=== PATIENT | female | born 1950 | race Hispanic/Latino ===

== ENCOUNTER 2018-07-15 17:55 | Observation (INO) | payer OTHER ==
[~2018-07-15] VITALS: Ht 152.4 cm; Wt 89.2 kg
[~2018-07-15 17:55] MED LIST: ASPI-555 PO; ATOR40TA69 PO; CARV3.1262 PO; CLOP75TA14 PO; FURO40TA7 PO; LISI-617 PO; METO2.5T2 PO; NITR0.4T50 SL; PANT40TA25 PO; SITA100T12 PO; SPIR25TA PO
[2018-07-15 18:35] LABS: BASOPHILS % (AUTO) 1.2 % (0.0-5.0); EOSINOPHILS % (AUTO) 0.7 % (0.0-8.0); HEMATOCRIT 33.9 % (36-48); LYMPHOCYTES % (AUTO) 22.5 % (21.0-51.0); MEAN CORPUSCULAR HEMOGLOBIN 27.9 pg (27.0-33.0); MEAN CORPUSCULAR HGB CONC 34.1 g/dL (32.0-36.0); MEAN CORPUSCULAR VOLUME 81.8 fL (79-99); MONOCYTES % (AUTO) 6.4 % (3.0-13.0); NEUTROPHILS % (AUTO) 69.2 % (40.0-77.0); NUCLEATED RED BLOOD CELLS 0.2 % (0.0-0.19); PLATELET COUNT (AUTO) 248 K/uL (130-400); RED BLOOD CELL COUNT(AUTO) 4.15 MIL/uL (4.00-5.50); RED CELL DISTRIBUTION WIDTH 21.1 % (11.0-15.5); WHITE BLOOD COUNT (AUTO) 6.9 K/uL (4.8-10.8)
[2018-07-15 18:48] LABS: INR 1.28 (0.85-1.15); PARTIAL THROMBOPLASTIN TIME 28.8 SEC (26.3-35.5); PROTHROMBIN TIME 13.4 SEC (9.6-11.6)
[2018-07-15 18:51] LABS: CREATININE 1.3 mg/dL (0.5-1.5); POTASSIUM 3.6 mmol/L (3.5-5.1)
[2018-07-15 18:52] LABS: APPEARANCE,URINE Clear (CLEAR); BILIRUBIN,URINE Negative (NEGATIVE); COLOR,URINE Yellow (YELLOW); GLUCOSE, URINE (UA) Negative (NEGATIVE); KETONES,URINE Negative (NEGATIVE); LEUKOCYTE ESTERASE ,URINE Negative (NEGATIVE); NITRATE,URINE Negative (NEGATIVE); OCCULT BLOOD,URINE Negative (NEGATIVE); PROTEIN,URINE POS 2+ mg/dL (NEGATIVE)
[2018-07-15] MEDS ORDERED: FAMOTIDINE/PF 20 MG/2 ML VIAL IV ONE (18:56)
[2018-07-15 18:59] LABS: ALBUMIN 3.7 g/dL (3.5-5.0); BILIRUBIN,TOTAL 1.6 mg/dL (0.2-1.0); TOTAL PROTEIN, SERUM 7.4 g/dL (6.0-8.3)
[2018-07-15 19:00] LABS: B-TYPE NATRIURETIC PEPTIDE 4120 pg/mL (0-100)
[2018-07-15] MEDS ORDERED: NITROGLYCERIN 1GM/1 INCH PACKET TD ONE (19:10)
[2018-07-15] MEDS ORDERED: FUROSEMIDE 10 MG/ML 2ML VIAL ONE (19:10)
[2018-07-15 19:24] LABS: BACTERIA,URINE Rare /HPF (None Seen); RBC,URINE 0-1 /HPF (0-1)
[2018-07-15 19:25] LABS: SQUAMOUS EPITHELIAL CELL,UR Rare /HPF (0-2)
[2018-07-15 19:32] LABS: PLATELET MORPHOLOGY PLT CLUMPS PRESENT
[2018-07-15] MEDS ORDERED: POTASSIUM CHLORIDE 10% ELIXIR 20 MEQ/15 ML UDCUP PO PRN (22:00)
[2018-07-15] MEDS ORDERED: SODIUM CHLORIDE 0.9% 10 ML VIAL IVP PRN (22:00)
[2018-07-15] MEDS ORDERED: DEXTROSE 50%-WATER 50 ML DISP.SYRIN IV PRN (22:00)
[2018-07-15] MEDS ORDERED: POTASSIUM CHLORIDE 20 MEQ ERTAB PO PRN (22:00)
[2018-07-15] MEDS ORDERED: POTASSIUM CHLORIDE 20MEQ/100ML 100 ML IV PRN (22:00)
[2018-07-15] MEDS ORDERED: GLUCAGON 1MG KIT 1 MG ML IM PRN (22:00)
[2018-07-15] MEDS ORDERED: LIDOCAINE HCL-MPF 1% 2ML VIAL IJ PRN (22:00)
[2018-07-15 22:38] VITALS: BP 144/77
[2018-07-15] MEDS ORDERED: NITROGLYCERIN 0.4 MG SL TAB SL PRN (23:45)
[2018-07-16] MEDS ORDERED: ONDANSETRON HCL 4 MG/2 ML VIAL IVP PRN (00:15)
[2018-07-16] MEDS: HYDROMORPHONE 1 MG/1 ML AMP IVP PRN ×3 (00:19→22:20)
[2018-07-16 03:58] VITALS: BP 130/78
[2018-07-16 05:22] LABS: HEMATOCRIT 35.4 % (36-48); MEAN CORPUSCULAR HEMOGLOBIN 26.8 pg (27.0-33.0); MEAN CORPUSCULAR HGB CONC 32.6 g/dL (32.0-36.0); MEAN CORPUSCULAR VOLUME 82.1 fL (79-99); NUCLEATED RED BLOOD CELLS 0.1 % (0.0-0.19); PLATELET COUNT (AUTO) 283 K/uL (130-400); RED BLOOD CELL COUNT(AUTO) 4.31 MIL/uL (4.00-5.50); RED CELL DISTRIBUTION WIDTH 21.3 % (11.0-15.5); WHITE BLOOD COUNT (AUTO) 7.6 K/uL (4.8-10.8)
[2018-07-16 05:42] LABS: ALBUMIN 3.7 g/dL (3.5-5.0); BILIRUBIN,TOTAL 2.4 mg/dL (0.2-1.0); CREATININE 1.7 mg/dL (0.5-1.5); POTASSIUM 3.6 mmol/L (3.5-5.1); TOTAL PROTEIN, SERUM 7.4 g/dL (6.0-8.3)
[2018-07-16] MEDS ORDERED: FUROSEMIDE 10 MG/ML 4ML VIAL IVP SCH (06:00)
[2018-07-16] MEDS: INSULIN R PO SS1 SQ SCH ×4 (06:52→20:46)
[2018-07-16 08:00] VITALS: BP 136/62
[2018-07-16] MEDS: ASPIRIN 81MG TAB.CHEW PO SCH (09:31)
[2018-07-16] MEDS: SPIRONOLACTONE 25 MG TAB PO SCH (09:31)
[2018-07-16] MEDS: LINAGLIPTIN 5 MG TABLET PO SCH (09:31)
[2018-07-16] MEDS: PANTOPRAZOLE SODIUM 40 MG TABLET.DR PO SCH (09:31)
[2018-07-16] MEDS: CLOPIDOGREL BISULFATE 75 MG TAB PO SCH (09:31)
[2018-07-16 12:00] VITALS: BP 141/85
--- NOTE | 2018-07-16 15:04 | NUR ---
DCP CM met with pt discussed dc plans. Pt is independent prior to admission, lives at home w/spouse. Pt has a walker, provider 5hrs, uses 's wheelchair when going to MD appointments. Denies any other equipments/services. Pt feels safe to go back home, spouse able to assist with transportation and needs as necessary. DC plan to home. CM to cont to follow up. Addendum: 07/16/18 at 1508 by DANIEL LEIGH LVN CM Amended: Links added.
[2018-07-16 16:00] VITALS: BP 116/60
[2018-07-16] MEDS: FUROSEMIDE 10 MG/ML 2ML VIAL IV SCH (18:25)
[2018-07-16 19:46] VITALS: BP 134/83
[2018-07-16] MEDS: CARVEDILOL 3.125 MG TABLET PO SCH (20:45)
[2018-07-16] MEDS ORDERED: ATORVASTATIN CALCIUM 40 MG TABLET PO SCH (21:00)
[2018-07-16 23:45] VITALS: BP 136/78
[2018-07-17 04:14] VITALS: BP 124/71
[2018-07-17] MEDS: INSULIN R PO SS1 SQ SCH ×2 (05:11→11:30)
[2018-07-17 05:36] LABS: CREATININE 1.5 mg/dL (0.5-1.5); POTASSIUM 3.3 mmol/L (3.5-5.1)
[2018-07-17] MEDS: FUROSEMIDE 10 MG/ML 2ML VIAL IV SCH (06:09)
[2018-07-17 07:30] VITALS: BP 127/73
[2018-07-17] MEDS ORDERED: METOLAZONE 2.5 MG TABLET PO SCH (09:00)
[2018-07-17] MEDS: CARVEDILOL 3.125 MG TABLET PO SCH (09:43)
[2018-07-17] MEDS: CLOPIDOGREL BISULFATE 75 MG TAB PO SCH (09:43)
[2018-07-17] MEDS: ASPIRIN 81MG TAB.CHEW PO SCH (09:43)
[2018-07-17] MEDS: PANTOPRAZOLE SODIUM 40 MG TABLET.DR PO SCH (09:43)
[2018-07-17] MEDS: SPIRONOLACTONE 25 MG TAB PO SCH (09:43)
[2018-07-17] MEDS: LINAGLIPTIN 5 MG TABLET PO SCH (09:43)
[2018-07-17] MEDS ORDERED: FURO40TA5 PO (10:01)
[2018-07-17 11:00] VITALS: BP 127/69
--- NOTE | 2018-07-17 14:40 | NUR ---
DISCHARGE PATIENT/SPOUSE AND PROVIDER GIVEN DISCHARGE INSTRUCTIONS VIA TEACH BACK. 20G PIV TO LEFT HAND DISCONTINUED, TIP INTACT. PATIENT TO FOLLOW UP WITH PCP AND CLAIRE PERALTA AT [facility]. WRITTEN RX GIVEN AND PROVIDER AWARE OF SETTING UP MEDICATION BOX PROPERLY. PATIENT/SPOUSE UNABLE TO READ OR WRITE. PATIENT STABLE AT THIS TIME.
== END 2018-07-17 14:35 | disposition home or self-care (01) ==
LOC: EDH 17:55 → EDHIP 21:05 → 3BH 22:56
PROVIDERS: ADMIT Internal Medicine; ATTEND Internal Medicine
DX: I11.0 Hypertensive heart disease with heart failure (principal); I50.43 Acute on chronic combined systolic (congestive) and diastolic (congestive) heart failure; E11.9 Type 2 diabetes mellitus without complications; E66.9 Obesity, unspecified; E78.5 Hyperlipidemia, unspecified; I25.10 Atherosclerotic heart disease of native coronary artery without angina pectoris; I25.2 Old myocardial infarction; I25.5 Ischemic cardiomyopathy; I45.19 Other right bundle-branch block; I48.0 Paroxysmal atrial fibrillation; R57.0 Cardiogenic shock; S06.5X9A Traumatic subdural hemorrhage with loss of consciousness of unspecified duration, initial encounter; Z79.02 Long term (current) use of antithrombotics/antiplatelets; Z79.84 Long term (current) use of oral hypoglycemic drugs; Z79.899 Other long term (current) drug therapy; Z90.710 Acquired absence of both cervix and uterus; Z91.14 Patient's other noncompliance with medication regimen; Z91.19 Patient's noncompliance with other medical treatment and regimen; Z95.5 Presence of coronary angioplasty implant and graft; Z79.82 Long term (current) use of aspirin
CPT/HCPCS: 36415 ×3; 71045; 74176; 80048; 80053 ×2; 81001; 82150; 82550; 82948 ×6; 83690; 83880 ×2; 84484; 85025; 85027; 85610; 85730; 87804 ×2; 93005 ×2; 96372; 96374; 96375; 96376 ×2; 99284; G0378 ×41; J1170 ×3; J1815 ×2; J1940 ×4; J3490

== ENCOUNTER → 2018-10-07 | Outpatient (CLI) | payer OTHER ==
[~2018-10-07] MED LIST changes: +FURO40TA5 PO; -FURO40TA7 PO; -PANT40TA25 PO
== END | disposition home or self-care (01) ==
LOC: LAB 10-03 14:36
PROVIDERS: ATTEND Internal Medicine Cardiovascular Disease
DX: R19.7 Diarrhea, unspecified (principal)
CPT/HCPCS: 83630; 87177; 87324

== ENCOUNTER → 2020-06-23 | Outpatient (CLI) | payer OTHER ==
[~2020-06-23] MED LIST changes: -ASPI-555 PO; +ASPI-556 PO; -LISI-617 PO; +LISI-809 PO
== END | disposition home or self-care (01) ==
LOC: RAH 08:25
PROVIDERS: ATTEND Internal Medicine Gastroenterology
DX: K74.3 Primary biliary cirrhosis (principal); K86.2 Cyst of pancreas; J90 Pleural effusion, not elsewhere classified; I51.7 Cardiomegaly; Z90.49 Acquired absence of other specified parts of digestive tract
CPT/HCPCS: 74181

== ENCOUNTER → 2020-10-14 | Outpatient (CLI) | payer OTHER | END | disposition home or self-care (01) | LOC: SHCH 08:11 | PROVIDERS: ATTEND Internal Medicine Cardiovascular Disease | DX: I87.2 Venous insufficiency (chronic) (peripheral) (principal) | CPT/HCPCS: 93970 ==

== ENCOUNTER → 2021-05-02 | Outpatient (CLI) | payer OTHER ==
[~2021-05-02] MED LIST changes: +GADOTERATE MEGLUMINE 10 MMOL/20 ML VIAL IV ONE; -LISI-809 PO; +LISI5TAB21 PO
== END | disposition home or self-care (01) ==
LOC: RAH 09:02
PROVIDERS: ATTEND Internal Medicine Gastroenterology
DX: K86.2 Cyst of pancreas (principal); K74.3 Primary biliary cirrhosis; J90 Pleural effusion, not elsewhere classified; Z90.49 Acquired absence of other specified parts of digestive tract
CPT/HCPCS: 74183; A9575

== ENCOUNTER → 2021-08-10 | Outpatient (CLI) | payer OTHER ==
[~2021-08-10] MED LIST changes: -GADOTERATE MEGLUMINE 10 MMOL/20 ML VIAL IV ONE
[2021-08-10 12:52] LABS: CREATININE 2.8 mg/dL (0.5-1.5); POTASSIUM 4.7 mmol/L (3.5-5.1)
== END | disposition home or self-care (01) ==
LOC: LAB 10:17
PROVIDERS: ATTEND Internal Medicine Cardiovascular Disease
DX: I50.42 Chronic combined systolic (congestive) and diastolic (congestive) heart failure (principal)
CPT/HCPCS: 36415; 80048; 83880

== ENCOUNTER → 2021-08-17 | Outpatient (CLI) | payer OTHER ==
[2021-08-17 12:35] LABS: POTASSIUM 4.1 mmol/L (3.5-5.1)
== END | disposition home or self-care (01) ==
LOC: LAB 09:46
PROVIDERS: ATTEND Internal Medicine Cardiovascular Disease
DX: I50.42 Chronic combined systolic (congestive) and diastolic (congestive) heart failure (principal)
CPT/HCPCS: 36415; 80048

== ENCOUNTER 2021-12-24 00:17 | Emergency (ER) | payer OTHER ==
[~2021-12-24] VITALS: Ht 152.4 cm; Wt 73.5 kg
[2021-12-24 01:05] LABS: BASOPHILS % (AUTO) 0.5 % (0.0-5.0); EOSINOPHILS % (AUTO) 1.2 % (0.0-8.0); MEAN CORPUSCULAR HEMOGLOBIN 30.4 pg (27.0-33.0); MEAN CORPUSCULAR HGB CONC 33.1 g/dL (32.0-36.0); MEAN CORPUSCULAR VOLUME 91.9 fL (79-99); MONOCYTES % (AUTO) 8.7 % (3.0-13.0); NEUTROPHILS % (AUTO) 76.3 % (40.0-77.0); PLATELET COUNT (AUTO) 204 K/uL (130-400); RED BLOOD CELL COUNT(AUTO) 3.81 MIL/uL (4.00-5.50); RED CELL DISTRIBUTION WIDTH 14.3 % (11.0-15.5); WHITE BLOOD COUNT (AUTO) 10.6 K/uL (4.8-10.8)
[2021-12-24 01:13] LABS: CREATININE 2.6 mg/dL (0.5-1.5); POTASSIUM 3.9 mmol/L (3.5-5.1)
[2021-12-24 01:17] LABS: ALBUMIN 2.9 g/dL (3.5-5.0); TOTAL PROTEIN, SERUM 6.8 g/dL (6.0-8.3)
[2021-12-24] MEDS: GUAIFENESIN-CODEINE 5 ML SYRUP PO ONE (01:45)
[2021-12-24] MEDS: FUROSEMIDE 40MG VIAL IV ONE (01:45)
[2021-12-24] MEDS: MORPHINE 2 MG SYG IVP ONE (03:15)
[2021-12-24] MEDS ORDERED: AZIT1PAC7 PO (05:57)
[2021-12-24] MEDS ORDERED: GUAI5SYR4 PO (05:57)
[2021-12-24 06:11] VITALS: BP 121/71
== END 2021-12-24 06:21 | disposition home or self-care (01) ==
LOC: EDH 00:17
DX: J40 Bronchitis, not specified as acute or chronic (principal); R05.9 Cough, unspecified; J81.1 Chronic pulmonary edema; I11.0 Hypertensive heart disease with heart failure; I50.9 Heart failure, unspecified; Z20.822 Contact with and (suspected) exposure to COVID-19; E11.9 Type 2 diabetes mellitus without complications; E78.00 Pure hypercholesterolemia, unspecified; Z95.818 Presence of other cardiac implants and grafts; Z79.899 Other long term (current) drug therapy; Z79.82 Long term (current) use of aspirin; Z79.84 Long term (current) use of oral hypoglycemic drugs
CPT/HCPCS: 99285; 96374; 71045; 87635; 96375; 83735; 84484; 80053; 83880; 85025; 87804 ×2; 36415; 93005; C9803; J1940

== ENCOUNTER → 2022-01-04 | Outpatient (CLI) | payer OTHER ==
[~2022-01-04] MED LIST changes: +AZIT1PAC7 PO; +GUAI5SYR4 PO
[2022-01-04 13:01] LABS: CREATININE 2.1 mg/dL (0.5-1.5); POTASSIUM 4.3 mmol/L (3.5-5.1)
== END | disposition home or self-care (01) ==
LOC: LAB 09:47
PROVIDERS: ATTEND Internal Medicine Cardiovascular Disease
DX: I50.22 Chronic systolic (congestive) heart failure (principal)
CPT/HCPCS: 36415; 80048; 83880

== ENCOUNTER 2022-01-13 17:01 | Inpatient (IN) | payer OTHER ==
[~2022-01-13] VITALS: Ht 152.4 cm; Wt 77.5 kg
[2022-01-13] MEDS ORDERED: TORS20TA4 PO (17:25)
[2022-01-13] MEDS ORDERED: GLIP2.5T2 PO (17:27)
[2022-01-13] MEDS ORDERED: CARV3.12 PO (17:28)
[2022-01-13] MEDS ORDERED: ATOR40TA69 PO (17:30)
[2022-01-13] MEDS ORDERED: ISOS30TA92 PO (17:30)
[2022-01-13] MEDS ORDERED: HYDR-4153 PO (17:31)
[2022-01-13 17:33] LABS: BASOPHILS % (AUTO) 0.5 % (0.0-5.0); HEMATOCRIT 35.5 % (36-48); LYMPHOCYTES % (AUTO) 18.1 % (21.0-51.0); MEAN CORPUSCULAR HEMOGLOBIN 30.3 pg (27.0-33.0); MEAN CORPUSCULAR HGB CONC 32.4 g/dL (32.0-36.0); MEAN CORPUSCULAR VOLUME 93.4 fL (79-99); NEUTROPHILS % (AUTO) 70.2 % (40.0-77.0); PLATELET COUNT (AUTO) 192 K/uL (130-400); RED CELL DISTRIBUTION WIDTH 15.1 % (11.0-15.5); WHITE BLOOD COUNT (AUTO) 6.4 K/uL (4.8-10.8)
[2022-01-13 17:38] LABS: APPEARANCE,URINE CLEAR (CLEAR); BILIRUBIN,URINE NEGATIVE (NEGATIVE); COLOR,URINE LIGHT-YELLOW (YELLOW); GLUCOSE, URINE (UA) NEGATIVE (NEGATIVE); KETONES,URINE NEGATIVE (NEGATIVE); LEUKOCYTE ESTERASE ,URINE NEGATIVE Leu/uL (NEGATIVE); NITRATE,URINE NEGATIVE (NEGATIVE); OCCULT BLOOD,URINE NEGATIVE (NEGATIVE); PROTEIN,URINE NEGATIVE (NEGATIVE); UROBILINOGEN,URINE 0.2 mg/dL (0.2-1.0)
[2022-01-13 17:54] LABS: ALBUMIN 2.9 g/dL (3.5-5.0); CREATININE 2.1 mg/dL (0.5-1.5); POTASSIUM 3.7 mmol/L (3.5-5.1); TOTAL PROTEIN, SERUM 6.4 g/dL (6.0-8.3)
[2022-01-13 18:02] LABS: B-TYPE NATRIURETIC PEPTIDE 1680 pg/mL (0-100)
[2022-01-13] MEDS ORDERED: FUROSEMIDE 40MG VIAL ONE (18:14)
[2022-01-13] MEDS ORDERED: 0.9% NACL 500ML IV.SOLN 500 ML IV SCH (18:30)
[2022-01-13 22:15] VITALS: BP 121/53
[2022-01-13] MEDS ORDERED: LABETALOL 20MG SYG IV PRN (22:30)
[2022-01-13] MEDS ORDERED: LACTULOSE 20 GM/30 ML UDCUP PO PRN (22:30)
[2022-01-13] MEDS ORDERED: HYDRALAZINE 20MG/ML VIAL IV PRN (22:30)
[2022-01-13] MEDS ORDERED: ONDANSETRON 4MG INJ IVP PRN (22:30)
[2022-01-13] MEDS ORDERED: CLONIDINE HCL 0.1 MG TABLET PO PRN (22:30)
[2022-01-13] MEDS ORDERED: ALBUTEROL 0.083% 2.5 MG/3 ML INH IH PRN (22:30)
[2022-01-13] MEDS ORDERED: ACETAMINOPHEN 650 MG SUPPOSITORY RC PRN (22:30)
[2022-01-13] MEDS ORDERED: PANTOPRAZOLE 40 MG/VIAL IVP ONE (23:00)
[2022-01-13] MEDS ORDERED: DEXTROSE 50%-WATER 50 ML DISP.SYRIN IV PRN (23:00)
[2022-01-13] MEDS ORDERED: GLUCAGON 1MG KIT 1 MG ML IM PRN (23:00)
[2022-01-14] MEDS: IPRATROPIUM 0.5 MG/2.5 ML INH IH SCH ×6 (02:14→22:49)
[2022-01-14 03:57] VITALS: BP 117/80
[2022-01-14] MEDS: ACETAMINOPHEN 325 MG TAB PO PRN ×2 (04:59→23:21)
[2022-01-14 05:00] LABS: BASOPHILS % (AUTO) 0.7 % (0.0-5.0); EOSINOPHILS % (AUTO) 2.4 % (0.0-8.0); HEMATOCRIT 32.1 % (36-48); MEAN CORPUSCULAR HEMOGLOBIN 30.3 pg (27.0-33.0); MEAN CORPUSCULAR HGB CONC 32.1 g/dL (32.0-36.0); MEAN CORPUSCULAR VOLUME 94.4 fL (79-99); MONOCYTES % (AUTO) 10.4 % (3.0-13.0); NEUTROPHILS % (AUTO) 66.9 % (40.0-77.0); PLATELET COUNT (AUTO) 177 K/uL (130-400); RED CELL DISTRIBUTION WIDTH 15.1 % (11.0-15.5); WHITE BLOOD COUNT (AUTO) 5.4 K/uL (4.8-10.8)
[2022-01-14 05:23] LABS: CREATININE 2.1 mg/dL (0.5-1.5); MAGNESIUM 2.3 mg/dL (1.80-2.40); PHOSPHORUS 5.2 mg/dL (2.5-4.9); POTASSIUM 3.5 mmol/L (3.5-5.1); THYROID STIMULATING HORMONE 5.86 uIU/mL (0.36-3.74)
[2022-01-14 07:08] VITALS: BP 118/54
[2022-01-14] MEDS ORDERED: FUROSEMIDE 40MG VIAL IV SCH (08:00)
[2022-01-14] MEDS: ENOXAPARIN SODIUM 30 MG/0.3 ML SQ SCH (08:12)
[2022-01-14] MEDS: ISOSORBIDE MONO 30MG SR TAB PO SCH (10:52)
[2022-01-14] MEDS: PANTOPRAZOLE 40 MG TAB DR PO SCH (10:52)
[2022-01-14] MEDS: CARVEDILOL 3.125 MG TABLET PO SCH ×2 (10:53→20:46)
[2022-01-14 11:08] VITALS: BP 114/60
[2022-01-14] MEDS ORDERED: MAGNESIUM CITRATE 296 ML SOLUTION PO SCH (13:30)
[2022-01-14] MEDS ORDERED: MAGNESIUM CITRATE 296 ML SOLUTION PO ONE (15:30)
[2022-01-14 16:00] VITALS: BP 118/72
[2022-01-14] MEDS: BUMETANIDE 2.5MG/10ML VIAL 40 ML IV SCH (16:33)
[2022-01-14] MEDS: MILRINONE-D5W 20 MG/100 ML 100 ML IV SCH (16:35)
[2022-01-14 19:21] VITALS: BP 119/62
[2022-01-14] MEDS: HYDRALAZINE HCL 10 MG TABLET PO SCH (20:45)
[2022-01-14] MEDS: ATORVASTATIN 40 MG TABLET PO SCH (20:46)
[2022-01-15 00:21] VITALS: BP 118/56
[2022-01-15 00:38] LABS: APPEARANCE,URINE CLEAR (CLEAR); BILIRUBIN,URINE NEGATIVE (NEGATIVE); COLOR,URINE LIGHT-YELLOW (YELLOW); GLUCOSE, URINE (UA) NEGATIVE (NEGATIVE); KETONES,URINE NEGATIVE (NEGATIVE); LEUKOCYTE ESTERASE ,URINE NEGATIVE Leu/uL (NEGATIVE); NITRATE,URINE NEGATIVE (NEGATIVE); OCCULT BLOOD,URINE NEGATIVE (NEGATIVE); PROTEIN,URINE NEGATIVE (NEGATIVE); UROBILINOGEN,URINE 0.2 mg/dL (0.2-1.0)
[2022-01-15] MEDS: MILRINONE-D5W 20 MG/100 ML 100 ML IV SCH ×2 (02:10→15:13)
[2022-01-15] MEDS: IPRATROPIUM 0.5 MG/2.5 ML INH IH SCH ×3 (02:46→10:00)
[2022-01-15 03:21] VITALS: BP 110/52
[2022-01-15 03:43] LABS: CREATININE,URINE RANDOM 35 mg/dL (30-135); SODIUM,URINE RANDOM 71 mmol/l (40-220)
[2022-01-15 04:55] LABS: HEMATOCRIT 29.6 % (36-48); MEAN CORPUSCULAR HEMOGLOBIN 30.2 pg (27.0-33.0); MEAN CORPUSCULAR HGB CONC 32.4 g/dL (32.0-36.0); MEAN CORPUSCULAR VOLUME 93.1 fL (79-99); RED BLOOD CELL COUNT(AUTO) 3.18 MIL/uL (4.00-5.50); WHITE BLOOD COUNT (AUTO) 6.4 K/uL (4.8-10.8)
[2022-01-15 05:05] LABS: INR 1.05 (0.85-1.15); PROTHROMBIN TIME 11.4 SEC (9.6-11.6)
[2022-01-15 05:06] LABS: ALBUMIN 2.7 g/dL (3.5-5.0); CREATININE 2.3 mg/dL (0.5-1.5); MAGNESIUM 2.3 mg/dL (1.80-2.40); PHOSPHORUS 4.8 mg/dL (2.5-4.9); POTASSIUM 3.3 mmol/L (3.5-5.1); TOTAL PROTEIN, SERUM 5.8 g/dL (6.0-8.3)
[2022-01-15] MEDS: LEVOTHYROXINE 50 MCG TABLET PO SCH (05:57)
[2022-01-15 07:00] VITALS: BP 113/57
[2022-01-15] MEDS: PANTOPRAZOLE 40 MG TAB DR PO SCH (08:25)
[2022-01-15] MEDS: ISOSORBIDE MONO 30MG SR TAB PO SCH (08:26)
[2022-01-15] MEDS: CARVEDILOL 3.125 MG TABLET PO SCH ×2 (08:26→21:56)
[2022-01-15] MEDS: HYDRALAZINE HCL 10 MG TABLET PO SCH ×3 (08:26→21:44)
[2022-01-15] MEDS: ENOXAPARIN SODIUM 30 MG/0.3 ML SQ SCH (08:27)
[2022-01-15 11:00] VITALS: BP 124/59
[2022-01-15 16:00] VITALS: BP 106/49
[2022-01-15 19:21] VITALS: BP 113/57
[2022-01-15] MEDS: ATORVASTATIN 40 MG TABLET PO SCH (21:00)
[2022-01-15] MEDS: DOCUSATE SODIUM 100 MG CAP PO PRN (21:50)
[2022-01-15] MEDS ORDERED: BUMETANIDE 1MG/4ML VIAL ONE ×2 (23:12→23:20)
[2022-01-15] MEDS: BUMETANIDE 2.5MG/10ML VIAL 40 ML IV SCH (23:26)
[2022-01-16] VITALS (7 sets, daily range): BP systolic 95–117; BP diastolic 44–62
[2022-01-16] MEDS: MILRINONE-D5W 20 MG/100 ML 100 ML IV SCH (01:07)
[2022-01-16 03:56] LABS: HEMATOCRIT 29.3 % (36-48); MEAN CORPUSCULAR HEMOGLOBIN 30.3 pg (27.0-33.0); MEAN CORPUSCULAR HGB CONC 32.4 g/dL (32.0-36.0); MEAN CORPUSCULAR VOLUME 93.3 fL (79-99); RED BLOOD CELL COUNT(AUTO) 3.14 MIL/uL (4.00-5.50); RED CELL DISTRIBUTION WIDTH 14.9 % (11.0-15.5)
[2022-01-16 04:12] LABS: ALBUMIN 2.6 g/dL (3.5-5.0); CREATININE 2.2 mg/dL (0.5-1.5); MAGNESIUM 2.1 mg/dL (1.80-2.40); TOTAL PROTEIN, SERUM 5.7 g/dL (6.0-8.3)
[2022-01-16] MEDS ORDERED: POTASSIUM CHLORIDE 10MEQ SR TAB PO SCH (05:00)
[2022-01-16] MEDS: LEVOTHYROXINE 50 MCG TABLET PO SCH (05:40)
[2022-01-16] MEDS: ACETAMINOPHEN 325 MG TAB PO PRN (06:05)
[2022-01-16] MEDS: CYCLOBENZAPRINE HCL 10 MG TABLET PO SCH ×3 (06:30→06:39)
[2022-01-16] MEDS: ISOSORBIDE MONO 30MG SR TAB PO SCH (08:45)
[2022-01-16] MEDS: PANTOPRAZOLE 40 MG TAB DR PO SCH (08:46)
[2022-01-16] MEDS: CARVEDILOL 3.125 MG TABLET PO SCH ×2 (08:46→22:32)
[2022-01-16] MEDS: HYDRALAZINE HCL 10 MG TABLET PO SCH ×3 (08:46→22:32)
[2022-01-16] MEDS: ENOXAPARIN SODIUM 30 MG/0.3 ML SQ SCH (08:47)
[2022-01-16] MEDS: DOBUTAMINE 250MG/D5 250ML 250 ML IV SCH (15:20)
[2022-01-16] MEDS: ATORVASTATIN 40 MG TABLET PO SCH (21:00)
[2022-01-17] MEDS: DOBUTAMINE 250MG/D5 250ML 250 ML IV SCH ×3 (02:31→23:54)
[2022-01-17 03:24] VITALS: BP 117/57
[2022-01-17 05:05] LABS: HEMATOCRIT 29.5 % (36-48); MEAN CORPUSCULAR HGB CONC 32.2 g/dL (32.0-36.0); MEAN CORPUSCULAR VOLUME 93.1 fL (79-99); RED BLOOD CELL COUNT(AUTO) 3.17 MIL/uL (4.00-5.50); RED CELL DISTRIBUTION WIDTH 14.9 % (11.0-15.5); WHITE BLOOD COUNT (AUTO) 5.1 K/uL (4.8-10.8)
[2022-01-17] MEDS: LEVOTHYROXINE 50 MCG TABLET PO SCH (05:31)
[2022-01-17 05:34] LABS: ALBUMIN 2.4 g/dL (3.5-5.0); CREATININE 2.1 mg/dL (0.5-1.5); MAGNESIUM 2.4 mg/dL (1.80-2.40); POTASSIUM 3.1 mmol/L (3.5-5.1); TOTAL PROTEIN, SERUM 5.6 g/dL (6.0-8.3)
[2022-01-17] MEDS: INSULIN HUMULIN R 100 UNIT/ML 3ML SQ SCH ×4 (06:51→21:00)
[2022-01-17] MEDS: POTASSIUM CHLORIDE 10MEQ SR TAB PO SCH ×3 (07:20→09:00)
[2022-01-17 08:00] VITALS: BP 110/63
[2022-01-17] MEDS: HYDRALAZINE HCL 10 MG TABLET PO SCH ×3 (08:12→21:43)
[2022-01-17] MEDS: ENOXAPARIN SODIUM 30 MG/0.3 ML SQ SCH (08:12)
[2022-01-17] MEDS: PANTOPRAZOLE 40 MG TAB DR PO SCH (08:13)
[2022-01-17] MEDS: CARVEDILOL 3.125 MG TABLET PO SCH ×2 (08:13→21:41)
[2022-01-17] MEDS: ISOSORBIDE MONO 30MG SR TAB PO SCH (08:13)
[2022-01-17 12:00] VITALS: BP 112/50
[2022-01-17 14:27] LABS: TOTAL PROTEIN, SERUM 5.6 g/dL (6.0-8.3)
[2022-01-17 16:00] VITALS: BP 128/64
[2022-01-17 20:04] VITALS: BP 118/56
[2022-01-17] MEDS: ATORVASTATIN 40 MG TABLET PO SCH ×2 (21:00→21:41)
[2022-01-17] MEDS: ACETAMINOPHEN 325 MG TAB PO PRN (21:42)
[2022-01-17] MEDS: BUMETANIDE 2.5MG/10ML VIAL 40 ML IV SCH (22:48)
[2022-01-17 23:33] VITALS: BP 105/52
[2022-01-18] VITALS (7 sets, daily range): BP systolic 100–131; BP diastolic 40–68
[2022-01-18] MEDS ORDERED: MORPHINE 2 MG SYG IVP PRN (01:30)
[2022-01-18 04:13] LABS: BASOPHILS % (AUTO) 0.8 % (0.0-5.0); HEMATOCRIT 31.2 % (36-48); LYMPHOCYTES % (AUTO) 17.4 % (21.0-51.0); MEAN CORPUSCULAR HGB CONC 31.4 g/dL (32.0-36.0); MEAN CORPUSCULAR VOLUME 95.4 fL (79-99); MONOCYTES % (AUTO) 11.4 % (3.0-13.0); NEUTROPHILS % (AUTO) 67.2 % (40.0-77.0); PLATELET COUNT (AUTO) 162 K/uL (130-400); RED BLOOD CELL COUNT(AUTO) 3.27 MIL/uL (4.00-5.50); RED CELL DISTRIBUTION WIDTH 15.2 % (11.0-15.5); WHITE BLOOD COUNT (AUTO) 5.1 K/uL (4.8-10.8)
[2022-01-18 04:26] LABS: INR 1.04 (0.85-1.15); PROTHROMBIN TIME 11.3 SEC (9.6-11.6)
[2022-01-18 04:27] LABS: ALBUMIN 2.4 g/dL (3.5-5.0); BILIRUBIN,DIRECT 0.3 mg/dL (0.0-0.3); CREATININE 2.5 mg/dL (0.5-1.5); MAGNESIUM 2.4 mg/dL (1.80-2.40); PARTIAL THROMBOPLASTIN TIME 30.7 SEC (26.3-35.5); PHOSPHORUS 4.2 mg/dL (2.5-4.9); POTASSIUM 3.4 mmol/L (3.5-5.1); TOTAL PROTEIN, SERUM 5.6 g/dL (6.0-8.3)
[2022-01-18] MEDS: POTASSIUM CHLORIDE 10MEQ SR TAB PO SCH ×3 (05:21→09:41)
[2022-01-18] MEDS: LEVOTHYROXINE 50 MCG TABLET PO SCH (06:00)
[2022-01-18] MEDS: INSULIN HUMULIN R 100 UNIT/ML 3ML SQ SCH ×4 (06:32→21:00)
[2022-01-18] MEDS: ENOXAPARIN SODIUM 30 MG/0.3 ML SQ SCH (07:34)
[2022-01-18] MEDS: CARVEDILOL 3.125 MG TABLET PO SCH ×2 (08:30→19:56)
[2022-01-18] MEDS: PANTOPRAZOLE 40 MG TAB DR PO SCH (08:40)
[2022-01-18] MEDS: HYDRALAZINE HCL 10 MG TABLET PO SCH ×3 (08:40→19:55)
[2022-01-18] MEDS: ISOSORBIDE MONO 30MG SR TAB PO SCH (08:40)
[2022-01-18] MEDS: DOBUTAMINE 250MG/D5 250ML 250 ML IV SCH ×3 (10:18→23:54)
[2022-01-18] MEDS ORDERED: METOLAZONE 2.5 MG TABLET PO SCH (13:00)
[2022-01-18 13:21] LABS: APPEARANCE BODY FLUID SLIGHTLY CLOUDY (CLEAR); COLOR,BODY FLUID YELLOW (LT YELLOW); SPECIMENTYPE,BODY FLUID PLEURAL
[2022-01-18 13:22] LABS: BODY FLUID RBC 806 /cu. mm.; BODY FLUID WBC 43 /cu. mm.; TOTAL VOLUME,BODY FLUID 1700 mL
[2022-01-18 14:10] LABS: BF EOSINOPHIL 1 %; BF LYMPHOCYTE 21 %; BF MESOTHELIAL 68 %; BF MONOCYTE 3 %
[2022-01-18] MEDS: BUMETANIDE 2.5MG/10ML VIAL 40 ML IV SCH (15:29)
[2022-01-18] MEDS: ATORVASTATIN 40 MG TABLET PO SCH (19:56)
[2022-01-18] MEDS: TEMAZEPAM 15 MG CAPSULE PO PRN (22:00)
[2022-01-18] MEDS: ACETAMINOPHEN 325 MG TAB PO PRN (22:00)
[2022-01-19 02:55] VITALS: BP 123/59
[2022-01-19 03:56] LABS: BASOPHILS % (AUTO) 0.6 % (0.0-5.0); EOSINOPHILS % (AUTO) 2.4 % (0.0-8.0); HEMATOCRIT 30.4 % (36-48); LYMPHOCYTES % (AUTO) 17.9 % (21.0-51.0); MEAN CORPUSCULAR HEMOGLOBIN 30.3 pg (27.0-33.0); MEAN CORPUSCULAR HGB CONC 32.2 g/dL (32.0-36.0); MEAN CORPUSCULAR VOLUME 94.1 fL (79-99); NEUTROPHILS % (AUTO) 67.7 % (40.0-77.0); PLATELET COUNT (AUTO) 151 K/uL (130-400); RED BLOOD CELL COUNT(AUTO) 3.23 MIL/uL (4.00-5.50); WHITE BLOOD COUNT (AUTO) 4.9 K/uL (4.8-10.8)
[2022-01-19 04:13] LABS: CREATININE 2.4 mg/dL (0.5-1.5); POTASSIUM 3.1 mmol/L (3.5-5.1)
[2022-01-19] MEDS: LEVOTHYROXINE 50 MCG TABLET PO SCH (05:29)
[2022-01-19] MEDS ORDERED: POTASSIUM CHLORIDE 10MEQ SR TAB PO ONE ×3 (05:30→16:00)
[2022-01-19] MEDS: BUMETANIDE 2.5MG/10ML VIAL 40 ML IV SCH ×2 (05:30→11:39)
[2022-01-19 07:00] VITALS: BP 111/47
[2022-01-19] MEDS: INSULIN HUMULIN R 100 UNIT/ML 3ML SQ SCH ×4 (07:28→20:39)
[2022-01-19] MEDS: PANTOPRAZOLE 40 MG TAB DR PO SCH (08:40)
[2022-01-19] MEDS: HYDRALAZINE HCL 10 MG TABLET PO SCH ×3 (08:40→20:38)
[2022-01-19] MEDS: CARVEDILOL 3.125 MG TABLET PO SCH ×2 (08:41→20:38)
[2022-01-19] MEDS: ISOSORBIDE MONO 30MG SR TAB PO SCH (08:41)
[2022-01-19] MEDS: ENOXAPARIN SODIUM 30 MG/0.3 ML SQ SCH (08:42)
[2022-01-19 11:00] VITALS: BP 115/54
[2022-01-19] MEDS: DOBUTAMINE 250MG/D5 250ML 250 ML IV SCH ×2 (11:39→12:41)
[2022-01-19] MEDS: DOCUSATE SODIUM 100 MG CAP PO PRN (11:45)
[2022-01-19 16:00] VITALS: BP 112/41
[2022-01-19 19:15] VITALS: BP 118/51
[2022-01-19] MEDS: ATORVASTATIN 40 MG TABLET PO SCH (20:39)
[2022-01-19] MEDS: TEMAZEPAM 15 MG CAPSULE PO PRN (22:12)
[2022-01-19] MEDS: ACETAMINOPHEN 325 MG TAB PO PRN (22:13)
[2022-01-20] VITALS (13 sets, daily range): BP systolic 98–124; BP diastolic 39–70
[2022-01-20] MEDS: DOBUTAMINE 250MG/D5 250ML 250 ML IV SCH (00:17)
[2022-01-20 03:58] LABS: BASOPHILS % (AUTO) 0.4 % (0.0-5.0); EOSINOPHILS % (AUTO) 2.9 % (0.0-8.0); HEMATOCRIT 31.7 % (36-48); LYMPHOCYTES % (AUTO) 21.5 % (21.0-51.0); MEAN CORPUSCULAR HEMOGLOBIN 30.4 pg (27.0-33.0); MEAN CORPUSCULAR HGB CONC 32.8 g/dL (32.0-36.0); MEAN CORPUSCULAR VOLUME 92.7 fL (79-99); MONOCYTES % (AUTO) 10.4 % (3.0-13.0); NEUTROPHILS % (AUTO) 64.4 % (40.0-77.0); PLATELET COUNT (AUTO) 159 K/uL (130-400); RED BLOOD CELL COUNT(AUTO) 3.42 MIL/uL (4.00-5.50); RED CELL DISTRIBUTION WIDTH 14.7 % (11.0-15.5); WHITE BLOOD COUNT (AUTO) 4.8 K/uL (4.8-10.8)
[2022-01-20 04:07] LABS: CREATININE 2.2 mg/dL (0.5-1.5); POTASSIUM 3.2 mmol/L (3.5-5.1)
[2022-01-20] MEDS: BUMETANIDE 2.5MG/10ML VIAL 40 ML IV SCH (04:16)
[2022-01-20] MEDS ORDERED: POTASSIUM CHLORIDE 10MEQ SR TAB PO ONE (05:24)
[2022-01-20] MEDS: INSULIN HUMULIN R 100 UNIT/ML 3ML SQ SCH ×4 (06:06→21:00)
[2022-01-20] MEDS: LEVOTHYROXINE 50 MCG TABLET PO SCH (06:14)
[2022-01-20] MEDS: ISOSORBIDE MONO 30MG SR TAB PO SCH (08:51)
[2022-01-20] MEDS: PANTOPRAZOLE 40 MG TAB DR PO SCH (08:51)
[2022-01-20] MEDS: CARVEDILOL 3.125 MG TABLET PO SCH ×2 (08:52→20:21)
[2022-01-20] MEDS: ENOXAPARIN SODIUM 30 MG/0.3 ML SQ SCH (08:52)
[2022-01-20] MEDS: HYDRALAZINE HCL 10 MG TABLET PO SCH ×3 (08:52→20:21)
[2022-01-20] MEDS ORDERED: TORS100T16 PO (09:07)
[2022-01-20] MEDS ORDERED: ATOR40TA71 PO (09:07)
[2022-01-20] MEDS ORDERED: CLOP75TA32 PO (09:08)
[2022-01-20] MEDS: TORSEMIDE 20 MG TAB PO SCH (17:16)
[2022-01-20] MEDS: ATORVASTATIN 40 MG TABLET PO SCH (20:20)
[2022-01-21 00:21] VITALS: BP 118/61
[2022-01-21] MEDS: TEMAZEPAM 15 MG CAPSULE PO PRN (01:44)
[2022-01-21 03:21] VITALS: BP 106/43
[2022-01-21 03:54] LABS: BASOPHILS % (AUTO) 0.9 % (0.0-5.0); HEMATOCRIT 31.7 % (36-48); LYMPHOCYTES % (AUTO) 20.5 % (21.0-51.0); MEAN CORPUSCULAR HEMOGLOBIN 29.7 pg (27.0-33.0); MEAN CORPUSCULAR HGB CONC 32.2 g/dL (32.0-36.0); MEAN CORPUSCULAR VOLUME 92.2 fL (79-99); MONOCYTES % (AUTO) 10.7 % (3.0-13.0); NEUTROPHILS % (AUTO) 64.7 % (40.0-77.0); PLATELET COUNT (AUTO) 173 K/uL (130-400); RED BLOOD CELL COUNT(AUTO) 3.44 MIL/uL (4.00-5.50); RED CELL DISTRIBUTION WIDTH 14.9 % (11.0-15.5); WHITE BLOOD COUNT (AUTO) 4.4 K/uL (4.8-10.8)
[2022-01-21 04:08] LABS: CREATININE 2.2 mg/dL (0.5-1.5)
[2022-01-21] MEDS: LEVOTHYROXINE 50 MCG TABLET PO SCH (06:02)
[2022-01-21] MEDS: INSULIN HUMULIN R 100 UNIT/ML 3ML SQ SCH (06:23)
[2022-01-21] MEDS ORDERED: KCL 20 MEQ ERTAB PO SCH (07:00)
[2022-01-21 08:08] VITALS: BP 108/50
[2022-01-21] MEDS: ENOXAPARIN SODIUM 30 MG/0.3 ML SQ SCH (09:59)
[2022-01-21] MEDS: TORSEMIDE 20 MG TAB PO SCH (10:00)
[2022-01-21] MEDS: ISOSORBIDE MONO 30MG SR TAB PO SCH (10:01)
[2022-01-21] MEDS: CARVEDILOL 3.125 MG TABLET PO SCH (10:01)
[2022-01-21] MEDS: HYDRALAZINE HCL 10 MG TABLET PO SCH (10:02)
[2022-01-21] MEDS: PANTOPRAZOLE 40 MG TAB DR PO SCH (10:02)
[2022-01-21 11:57] VITALS: BP 114/59
== END 2022-01-21 13:45 | disposition home or self-care (01) | DRG 291 ==
LOC: EDH 17:31 → OBSVTOIN 19:33 → EDHIP 19:33 → 3AH 22:16 → 2DH 01-14 16:14
PROVIDERS: ADMIT Internal Medicine Critical Care Medicine; ATTEND Internal Medicine Critical Care Medicine
PROC: 0W993ZZ Drainage of Right Pleural Cavity, Percutaneous Approach (ICD-10-PCS; principal; 2022-01-18)
DX: I13.0 Hypertensive heart and chronic kidney disease with heart failure and stage 1 through stage 4 chronic kidney disease, or unspecified chronic kidney disease (principal); I50.43 Acute on chronic combined systolic (congestive) and diastolic (congestive) heart failure; N17.9 Acute kidney failure, unspecified; N18.4 Chronic kidney disease, stage 4 (severe); J91.8 Pleural effusion in other conditions classified elsewhere; J98.11 Atelectasis; Z20.822 Contact with and (suspected) exposure to COVID-19; I25.5 Ischemic cardiomyopathy; I25.10 Atherosclerotic heart disease of native coronary artery without angina pectoris; I27.20 Pulmonary hypertension, unspecified; E87.6 Hypokalemia; D64.9 Anemia, unspecified; E03.9 Hypothyroidism, unspecified; E11.22 Type 2 diabetes mellitus with diabetic chronic kidney disease; E11.51 Type 2 diabetes mellitus with diabetic peripheral angiopathy without gangrene; E66.01 Morbid (severe) obesity due to excess calories; E78.5 Hyperlipidemia, unspecified; I25.2 Old myocardial infarction; Z79.02 Long term (current) use of antithrombotics/antiplatelets; Z79.899 Other long term (current) drug therapy; Z90.710 Acquired absence of both cervix and uterus; Z95.5 Presence of coronary angioplasty implant and graft; Z91.119 Patient's noncompliance with dietary regimen due to unspecified reason; Z68.33 Body mass index [BMI] 33.0-33.9, adult
CPT/HCPCS: 32555; 36415; 71045; 71250; 74181; 76770; 80048; 80053; 80076; 81003; 82570; 82945; 82948; 83615; 83735; 83880; 83935; 83986; 84100; 84155; 84157; 84300; 84443; 84484; 84550; 85025; 85027; 85610; 85730; 87071; 87116; 87205; 87206; 87635; 87804; 89051; 93005; 93306; 93356; 93970; 94640; 94664; 94760; 96365; 97039; C1729; C9113; G0378; J1250; J1650; J1940; J2260; J3490; J7040

== ENCOUNTER → 2022-02-08 | Outpatient (CLI) | payer OTHER ==
[~2022-02-08] MED LIST changes: -ASPI-556 PO; -ATOR40TA69 PO; +ATOR40TA71 PO; -AZIT1PAC7 PO; +CARV3.12 PO; -CARV3.1262 PO; -CLOP75TA14 PO; +CLOP75TA32 PO; -FURO40TA5 PO; +GLIP2.5T2 PO; -GUAI5SYR4 PO; +HYDR-4153 PO; +ISOS30TA92 PO; -LISI5TAB21 PO; -METO2.5T2 PO; -NITR0.4T50 SL; -SITA100T12 PO; -SPIR25TA PO; +TORS100T16 PO
[2022-02-08 12:27] LABS: POTASSIUM 3.8 mmol/L (3.5-5.1)
== END | disposition home or self-care (01) ==
LOC: LAB 09:02
PROVIDERS: ATTEND Internal Medicine Cardiovascular Disease
DX: I50.22 Chronic systolic (congestive) heart failure (principal)
CPT/HCPCS: 36415; 80048; 83880

== ENCOUNTER 2022-02-17 11:00 | Emergency (ER) | payer OTHER ==
[~2022-02-17] VITALS: Ht 154.9 cm; Wt 65.8 kg
[2022-02-17 11:37] LABS: BASOPHILS % (AUTO) 0.6 % (0.0-5.0); EOSINOPHILS % (AUTO) 2.4 % (0.0-8.0); HEMATOCRIT 36.2 % (36-48); LYMPHOCYTES % (AUTO) 17.1 % (21.0-51.0); MEAN CORPUSCULAR HEMOGLOBIN 30.7 pg (27.0-33.0); MEAN CORPUSCULAR HGB CONC 32.3 g/dL (32.0-36.0); MONOCYTES % (AUTO) 6.9 % (3.0-13.0); NEUTROPHILS % (AUTO) 72.6 % (40.0-77.0); PLATELET COUNT (AUTO) 142 K/uL (130-400); RED BLOOD CELL COUNT(AUTO) 3.81 MIL/uL (4.00-5.50); RED CELL DISTRIBUTION WIDTH 15.1 % (11.0-15.5); WHITE BLOOD COUNT (AUTO) 5.3 K/uL (4.8-10.8)
[2022-02-17 11:44] LABS: CREATININE 1.6 mg/dL (0.5-1.5); POTASSIUM 3.2 mmol/L (3.5-5.1)
[2022-02-17 11:47] LABS: INR 1.1 (0.85-1.15); PROTHROMBIN TIME 11.9 SEC (9.6-11.6)
[2022-02-17 11:48] LABS: PARTIAL THROMBOPLASTIN TIME 29.1 SEC (26.3-35.5)
[2022-02-17 11:57] LABS: TOTAL PROTEIN, SERUM 6.1 g/dL (6.0-8.3)
[2022-02-17 11:58] LABS: ALBUMIN 2.8 g/dL (3.5-5.0)
[2022-02-17 15:00] VITALS: BP 122/65
[2022-02-17] MEDS ORDERED: POTASSIUM CHLORIDE 10MEQ SR TAB PO SCH (15:30)
[2022-02-17] MEDS ORDERED: LIDOCAINE HCL 1% 20 ML VIAL ONE (16:31)
== END 2022-02-17 15:30 | disposition home or self-care (01) ==
LOC: EDH 11:00
DX: J90 Pleural effusion, not elsewhere classified (principal); I13.0 Hypertensive heart and chronic kidney disease with heart failure and stage 1 through stage 4 chronic kidney disease, or unspecified chronic kidney disease; E11.22 Type 2 diabetes mellitus with diabetic chronic kidney disease; N18.9 Chronic kidney disease, unspecified; I50.9 Heart failure, unspecified; E87.6 Hypokalemia; I48.91 Unspecified atrial fibrillation; Z98.890 Other specified postprocedural states; Z79.899 Other long term (current) drug therapy
CPT/HCPCS: 99285; 80053; 85025; 85610; 85730; 36415; 71045 ×2; 32555; C1729

== ENCOUNTER → 2022-03-21 | Outpatient (CLI) | payer OTHER | END | disposition home or self-care (01) | LOC: RAH 07:25 | PROVIDERS: ATTEND Internal Medicine Gastroenterology | DX: K76.0 Fatty (change of) liver, not elsewhere classified (principal); R18.8 Other ascites | CPT/HCPCS: 76700 ==

== ENCOUNTER 2022-05-25 14:29 | Inpatient (IN) | payer OTHER ==
[~2022-05-25] VITALS: Ht 152.4 cm; Wt 79.0 kg
[2022-05-25 15:04] LABS: BASOPHILS % (AUTO) 0.6 % (0.0-5.0); EOSINOPHILS % (AUTO) 0.9 % (0.0-8.0); HEMATOCRIT 42.3 % (36-48); LYMPHOCYTES % (AUTO) 16.1 % (21.0-51.0); MEAN CORPUSCULAR HEMOGLOBIN 30.6 pg (27.0-33.0); MEAN CORPUSCULAR HGB CONC 33.1 g/dL (32.0-36.0); MEAN CORPUSCULAR VOLUME 92.6 fL (79-99); NEUTROPHILS % (AUTO) 75.1 % (40.0-77.0); PLATELET COUNT (AUTO) 195 K/uL (130-400); RED BLOOD CELL COUNT(AUTO) 4.57 MIL/uL (4.00-5.50); RED CELL DISTRIBUTION WIDTH 15.2 % (11.0-15.5); WHITE BLOOD COUNT (AUTO) 6.7 K/uL (4.8-10.8)
[2022-05-25 15:13] LABS: CREATININE 2.4 mg/dL (0.5-1.5); POTASSIUM 3.6 mmol/L (3.5-5.1)
[2022-05-25 15:17] LABS: ALBUMIN 2.9 g/dL (3.5-5.0); TOTAL PROTEIN, SERUM 5.8 g/dL (6.0-8.3)
[2022-05-25] MEDS ORDERED: CARVEDILOL 6.25 MG TABLET PO ONE ×3 (15:59→19:55)
[2022-05-25] MEDS ORDERED: METOPROLOL TARTRATE 1 MG/ML 5ML VIAL IV ONE ×2 (15:59→16:00)
[2022-05-25] MEDS ORDERED: FUROSEMIDE 40MG VIAL IV ONE (17:00)
[2022-05-25] MEDS ORDERED: FUROSEMIDE 40MG VIAL ONE (17:10)
[2022-05-25] MEDS ORDERED: METOLAZONE 2.5 MG TABLET ONE (17:10)
[2022-05-25] MEDS: FUROSEMIDE 40MG VIAL IV SCH (17:11)
[2022-05-25 17:52] LABS: APPEARANCE,URINE CLEAR (CLEAR); BILIRUBIN,URINE NEGATIVE (NEGATIVE); COLOR,URINE LIGHT-YELLOW (YELLOW); GLUCOSE, URINE (UA) NEGATIVE (NEGATIVE); KETONES,URINE NEGATIVE (NEGATIVE); LEUKOCYTE ESTERASE ,URINE 250 Leu/uL (NEGATIVE); NITRATE,URINE NEGATIVE (NEGATIVE); OCCULT BLOOD,URINE NEGATIVE (NEGATIVE); PROTEIN,URINE NEGATIVE (NEGATIVE); UROBILINOGEN,URINE 0.2 mg/dL (0.2-1.0)
[2022-05-25] MEDS ORDERED: TEMAZEPAM 15 MG CAPSULE PO PRN (18:00)
[2022-05-25] MEDS ORDERED: HYDRALAZINE 20MG/ML VIAL IV PRN (18:00)
[2022-05-25] MEDS ORDERED: ONDANSETRON 4MG INJ IVP PRN (18:00)
[2022-05-25] MEDS ORDERED: METOLAZONE 2.5 MG TABLET PO SCH (18:00)
[2022-05-25] MEDS ORDERED: ACETAMINOPHEN 650 MG SUPPOSITORY RC PRN (18:00)
[2022-05-25] MEDS ORDERED: CLONIDINE HCL 0.1 MG TABLET PO PRN ×2 (18:00)
[2022-05-25] MEDS ORDERED: LACTULOSE 20 GM/30 ML UDCUP PO PRN (18:00)
[2022-05-25 18:27] LABS: BACTERIA,URINE MOD /HPF (None Seen); MUCUS,URINE RARE LPF (None Seen); RBC,URINE 0-1 /HPF (0-1); SQUAMOUS EPITHELIAL CELL,UR RARE /HPF (0-2)
[2022-05-25] MEDS ORDERED: CEFTRIAXONE 2GM VIAL IVP SCH (19:00)
[2022-05-25 19:06] LABS: CHOLESTEROL 108 mg/dL (<200); HDL CHOLESTEROL 38 mg/dL (35-85); LDL DIRECT 57 mg/dL (0-99); TRIGLYCERIDES 105 mg/dL (30-200)
[2022-05-25] MEDS: INSULIN HUMULIN R 100 UNIT/ML 3ML SQ SCH (19:36)
[2022-05-25] MEDS ORDERED: CEFTRIAXONE 2GM VIAL ONE (19:54)
[2022-05-25] MEDS ORDERED: ACETAMINOPHEN 325 MG TAB ONE (19:55)
[2022-05-25] MEDS ORDERED: METOCLOPRAMIDE 5 MG TABLET ONE (19:55)
[2022-05-25] MEDS ORDERED: HYDRALAZINE HCL 10 MG TABLET ONE (19:55)
[2022-05-25] MEDS: METOCLOPRAMIDE 5 MG TABLET PO SCH (20:11)
[2022-05-25] MEDS: HYDRALAZINE HCL 10 MG TABLET PO SCH (20:11)
[2022-05-25] MEDS: ACETAMINOPHEN 325 MG TAB PO PRN (20:12)
[2022-05-25] MEDS ORDERED: CARVEDILOL 12.5 MG TABLET PO ONE (20:13)
[2022-05-25] MEDS: CARVEDILOL 12.5 MG TABLET PO SCH (20:15)
[2022-05-25 21:20] VITALS: BP 90/56
[2022-05-25] MEDS ORDERED: GABA-533 PO (22:43)
[2022-05-25] MEDS ORDERED: CHOL100040 PO (22:43)
[2022-05-25] MEDS ORDERED: ATOR20TA65 PO (22:43)
[2022-05-25] MEDS ORDERED: TORS20TA4 PO ×2 (22:43)
[2022-05-25] MEDS ORDERED: CARV6.25 PO (22:43)
[2022-05-26] VITALS (14 sets, daily range): BP systolic 81–109; BP diastolic 50–74
[2022-05-26] MEDS: FUROSEMIDE 40MG VIAL IV SCH ×2 (03:36→16:45)
[2022-05-26 05:07] LABS: BASOPHILS % (AUTO) 0.6 % (0.0-5.0); EOSINOPHILS % (AUTO) 1.1 % (0.0-8.0); HEMATOCRIT 39.3 % (36-48); LYMPHOCYTES % (AUTO) 17.5 % (21.0-51.0); MEAN CORPUSCULAR HEMOGLOBIN 31.3 pg (27.0-33.0); MEAN CORPUSCULAR HGB CONC 33.8 g/dL (32.0-36.0); MEAN CORPUSCULAR VOLUME 92.5 fL (79-99); MONOCYTES % (AUTO) 7.4 % (3.0-13.0); NEUTROPHILS % (AUTO) 72.9 % (40.0-77.0); PLATELET COUNT (AUTO) 160 K/uL (130-400); RED BLOOD CELL COUNT(AUTO) 4.25 MIL/uL (4.00-5.50); WHITE BLOOD COUNT (AUTO) 6.6 K/uL (4.8-10.8)
[2022-05-26 05:31] LABS: CREATININE 2.2 mg/dL (0.5-1.5); MAGNESIUM 2.1 mg/dL (1.80-2.40); PHOSPHORUS 5.6 mg/dL (2.5-4.9); POTASSIUM 3.5 mmol/L (3.5-5.1)
[2022-05-26 05:38] LABS: B-TYPE NATRIURETIC PEPTIDE 1320 pg/mL (0-100)
[2022-05-26] MEDS: INSULIN HUMULIN R 100 UNIT/ML 3ML SQ SCH ×4 (05:58→21:15)
[2022-05-26] MEDS: METOCLOPRAMIDE 5 MG TABLET PO SCH ×4 (06:05→20:06)
[2022-05-26] MEDS: POLYETHYLENE GLYCOL 3350 17 GM POWD.PACK PO SCH (09:00)
[2022-05-26] MEDS: ASPIRIN 81MG CHEW TAB PO SCH (09:00)
[2022-05-26] MEDS: HYDRALAZINE HCL 10 MG TABLET PO SCH ×3 (09:00→20:06)
[2022-05-26] MEDS: ISOSORBIDE MONO 30MG SR TAB PO SCH (09:20)
[2022-05-26] MEDS: CARVEDILOL 12.5 MG TABLET PO SCH ×2 (09:21→20:06)
[2022-05-26 14:14] LABS: INR 1.13 (0.85-1.15); PROTHROMBIN TIME 12.2 SEC (9.6-11.6)
[2022-05-26 14:15] LABS: PARTIAL THROMBOPLASTIN TIME 28.7 SEC (26.3-35.5)
[2022-05-26 15:52] LABS: APPEARANCE BODY FLUID SLIGHTLY CLOUDY (CLEAR); SPECIMENTYPE,BODY FLUID PLEURAL
[2022-05-26 15:53] LABS: COLOR,BODY FLUID YELLOW (LT YELLOW); TOTAL VOLUME,BODY FLUID 800 mL
[2022-05-26 16:02] LABS: BODY FLUID RBC 644 /cu. mm.; BODY FLUID WBC 131 /cu. mm.
[2022-05-26 16:31] LABS: BF LYMPHOCYTE 51 %; BF MONOCYTE 9 %
[2022-05-26] MEDS: ACETAMINOPHEN 325 MG TAB PO PRN (19:13)
[2022-05-26] MEDS ORDERED: DEXTROSE 50%-WATER 50 ML DISP.SYRIN IV PRN (20:30)
[2022-05-26] MEDS ORDERED: POTASSIUM CHLORIDE 10MEQ/100ML 100 ML IV PRN ×2 (20:30)
[2022-05-26] MEDS ORDERED: POTASSIUM CHLORIDE 10% ELIXIR 20 MEQ/15 ML UDCUP PO PRN (20:30)
[2022-05-26] MEDS ORDERED: KCL 20 MEQ ERTAB PO PRN (20:30)
[2022-05-26] MEDS ORDERED: LIDOCAINE HCL-MPF 1% 2ML VIAL IV PRN ×2 (20:30)
[2022-05-26] MEDS ORDERED: MAGNESIUM 2GM PREMIX 50ML 50 ML IV PRN (20:30)
[2022-05-26] MEDS ORDERED: GLUCAGON 1MG KIT 1 MG ML IM PRN (20:30)
[2022-05-26] MEDS ORDERED: CEFTRIAXONE 2GM VIAL IVP SCH (22:00)
[2022-05-27] VITALS: BP 92/76
[2022-05-27 03:00] VITALS: BP 91/65
[2022-05-27] MEDS: FUROSEMIDE 40MG VIAL IV SCH (04:30)
[2022-05-27 05:19] VITALS: BP 100/66
[2022-05-27] MEDS: INSULIN HUMULIN R 100 UNIT/ML 3ML SQ SCH (05:40)
[2022-05-27] MEDS: METOCLOPRAMIDE 5 MG TABLET PO SCH (06:03)
[2022-05-27 08:05] VITALS: BP 111/57
[2022-05-27 08:20] LABS: CREATININE 2.3 mg/dL (0.5-1.5); POTASSIUM 3.2 mmol/L (3.5-5.1)
[2022-05-27] MEDS: ASPIRIN 81MG CHEW TAB PO SCH (09:00)
[2022-05-27] MEDS ORDERED: ENOXAPARIN SODIUM 30 MG/0.3 ML SQ SCH (09:00)
[2022-05-27] MEDS: POLYETHYLENE GLYCOL 3350 17 GM POWD.PACK PO SCH (09:00)
[2022-05-27] MEDS: HYDRALAZINE HCL 10 MG TABLET PO SCH (09:00)
[2022-05-27] MEDS ORDERED: PANTOPRAZOLE 40 MG TAB DR PO SCH (09:00)
[2022-05-27 09:01] VITALS: BP 108/61
[2022-05-27] MEDS: CARVEDILOL 12.5 MG TABLET PO SCH (09:01)
[2022-05-27] MEDS: ISOSORBIDE MONO 30MG SR TAB PO SCH (09:01)
== END 2022-05-27 11:23 | disposition left against medical advice (07) | DRG 291 ==
LOC: EDH 14:29 → EDHIP 17:31 → 2DH 21:09
PROVIDERS: ADMIT Internal Medicine Critical Care Medicine; ATTEND Internal Medicine Critical Care Medicine
PROC: 0W993ZZ Drainage of Right Pleural Cavity, Percutaneous Approach (ICD-10-PCS; principal; 2022-05-26)
DX: I13.0 Hypertensive heart and chronic kidney disease with heart failure and stage 1 through stage 4 chronic kidney disease, or unspecified chronic kidney disease (principal); I50.43 Acute on chronic combined systolic (congestive) and diastolic (congestive) heart failure; J96.00 Acute respiratory failure, unspecified whether with hypoxia or hypercapnia; N18.4 Chronic kidney disease, stage 4 (severe); N39.0 Urinary tract infection, site not specified; E87.1 Hypo-osmolality and hyponatremia; N17.9 Acute kidney failure, unspecified; M79.89 Other specified soft tissue disorders; I25.5 Ischemic cardiomyopathy; I48.0 Paroxysmal atrial fibrillation; E11.22 Type 2 diabetes mellitus with diabetic chronic kidney disease; I25.10 Atherosclerotic heart disease of native coronary artery without angina pectoris; E66.9 Obesity, unspecified; E78.00 Pure hypercholesterolemia, unspecified; G47.33 Obstructive sleep apnea (adult) (pediatric); I95.89 Other hypotension; Z53.29 Procedure and treatment not carried out because of patient's decision for other reasons; Z79.899 Other long term (current) drug therapy; Z79.01 Long term (current) use of anticoagulants; I25.2 Old myocardial infarction; Z95.5 Presence of coronary angioplasty implant and graft; Z95.1 Presence of aortocoronary bypass graft; Z68.34 Body mass index [BMI] 34.0-34.9, adult
CPT/HCPCS: 32555; 36415; 71045; 80048; 80053; 80061; 81001; 82550; 82948; 83615; 83735; 83874; 83880; 84100; 84155; 84484; 85025; 85610; 85730; 87071; 87077; 87088; 87186; 87205; 89051; 93005; 93970; C1729; G0378; J0696; J1650; J1815; J1940; J3490

== ENCOUNTER 2022-06-08 20:13 | Inpatient (IN) | payer OTHER ==
[~2022-06-08] VITALS: Ht 152.4 cm; Wt 84.8 kg
[~2022-06-08 20:13] MED LIST changes: +ATOR20TA65 PO; -ATOR40TA71 PO; -CARV3.12 PO; +CARV6.25 PO; +CHOL100040 PO; +GABA-533 PO; -HYDR-4153 PO; -ISOS30TA92 PO; -TORS100T16 PO; +TORS20TA4 PO
[2022-06-08 20:36] LABS: BASOPHILS % (AUTO) 0.6 % (0.0-5.0); LYMPHOCYTES % (AUTO) 16.2 % (21.0-51.0); MEAN CORPUSCULAR HEMOGLOBIN 30.6 pg (27.0-33.0); MEAN CORPUSCULAR HGB CONC 33.7 g/dL (32.0-36.0); MEAN CORPUSCULAR VOLUME 90.9 fL (79-99); NEUTROPHILS % (AUTO) 74.7 % (40.0-77.0); PLATELET COUNT (AUTO) 192 K/uL (130-400); RED BLOOD CELL COUNT(AUTO) 4.18 MIL/uL (4.00-5.50); RED CELL DISTRIBUTION WIDTH 14.9 % (11.0-15.5); WHITE BLOOD COUNT (AUTO) 8.4 K/uL (4.8-10.8)
[2022-06-08 20:38] LABS: APPEARANCE,URINE CLEAR (CLEAR); BILIRUBIN,URINE NEGATIVE (NEGATIVE); COLOR,URINE YELLOW (YELLOW); GLUCOSE, URINE (UA) NEGATIVE (NEGATIVE); KETONES,URINE NEGATIVE (NEGATIVE); LEUKOCYTE ESTERASE ,URINE NEGATIVE Leu/uL (NEGATIVE); NITRATE,URINE NEGATIVE (NEGATIVE); OCCULT BLOOD,URINE NEGATIVE (NEGATIVE); PROTEIN,URINE NEGATIVE (NEGATIVE); UROBILINOGEN,URINE 0.2 mg/dL (0.2-1.0)
[2022-06-08 20:53] LABS: ALBUMIN 2.1 g/dL (3.5-5.0); TOTAL PROTEIN, SERUM 4.7 g/dL (6.0-8.3)
[2022-06-08] MEDS ORDERED: DEXTROSE 5% IV ONE (21:00)
[2022-06-08] MEDS ORDERED: WATER IV ONE (21:00)
[2022-06-08] MEDS ORDERED: AMIODARONE IV ONE (21:00)
[2022-06-08 21:07] LABS: B-TYPE NATRIURETIC PEPTIDE 915 pg/mL (0-100)
[2022-06-08 21:11] LABS: POTASSIUM 2.8 mmol/L (3.5-5.1)
[2022-06-08] MEDS ORDERED: HYDRALAZINE 20MG/ML VIAL IV PRN (23:30)
[2022-06-08] MEDS ORDERED: LACTULOSE 20 GM/30 ML UDCUP PO PRN (23:30)
[2022-06-08] MEDS ORDERED: ONDANSETRON 4MG INJ IVP PRN (23:30)
[2022-06-08] MEDS ORDERED: DOCUSATE SODIUM 100 MG CAP PO PRN (23:30)
[2022-06-08] MEDS ORDERED: ACETAMINOPHEN 650 MG SUPPOSITORY RC PRN (23:30)
[2022-06-08] MEDS ORDERED: LABETALOL 20MG SYG IV PRN (23:30)
[2022-06-08] MEDS ORDERED: CLONIDINE HCL 0.1 MG TABLET PO PRN (23:30)
[2022-06-08] MEDS: ACETAMINOPHEN 325 MG TAB PO PRN (23:49)
[2022-06-08] MEDS ORDERED: KCL 20 MEQ ERTAB PO ONE ×2 (23:50→23:54)
[2022-06-08] MEDS ORDERED: POTASSIUM CHLORIDE 10MEQ/100ML 10 MEQ/100 ML ML IV ONE (23:50)
[2022-06-08] MEDS ORDERED: POTASSIUM CHLORIDE 10MEQ/100ML 100 ML IV ONE (23:54)
[2022-06-09] VITALS (12 sets, daily range): BP systolic 89–124; BP diastolic 49–73
[2022-06-09 05:36] LABS: CREATININE 2.3 mg/dL (0.5-1.5); MAGNESIUM 2.1 mg/dL (1.80-2.40); PHOSPHORUS 5.1 mg/dL (2.5-4.9); POTASSIUM 3.7 mmol/L (3.5-5.1); THYROID STIMULATING HORMONE 5.49 uIU/mL (0.36-3.74)
[2022-06-09] MEDS: FUROSEMIDE 20MG VIAL IV SCH ×2 (05:57→18:08)
[2022-06-09] MEDS: CARVEDILOL 6.25 MG TABLET PO SCH ×3 (05:57→20:38)
[2022-06-09] MEDS: LEVOTHYROXINE 25 MCG TABLET PO SCH (07:52)
[2022-06-09] MEDS: INSULIN HUMULIN R 100 UNIT/ML 3ML SQ SCH ×4 (07:52→21:33)
[2022-06-09 08:00] LABS: BASOPHILS % (AUTO) 0.4 % (0.0-5.0); EOSINOPHILS % (AUTO) 0.2 % (0.0-8.0); HEMATOCRIT 37.9 % (36-48); LYMPHOCYTES % (AUTO) 10.1 % (21.0-51.0); MEAN CORPUSCULAR HEMOGLOBIN 30.7 pg (27.0-33.0); MEAN CORPUSCULAR HGB CONC 33.5 g/dL (32.0-36.0); MEAN CORPUSCULAR VOLUME 91.5 fL (79-99); MONOCYTES % (AUTO) 5.3 % (3.0-13.0); NEUTROPHILS % (AUTO) 83.6 % (40.0-77.0); PLATELET COUNT (AUTO) 142 K/uL (130-400); RED BLOOD CELL COUNT(AUTO) 4.14 MIL/uL (4.00-5.50); RED CELL DISTRIBUTION WIDTH 14.9 % (11.0-15.5); WHITE BLOOD COUNT (AUTO) 9.8 K/uL (4.8-10.8)
[2022-06-09 08:41] LABS: CREATININE 2.3 mg/dL (0.5-1.5); POTASSIUM 3.3 mmol/L (3.5-5.1)
[2022-06-09] MEDS: CLOPIDOGREL 75MG TAB PO SCH (09:00)
[2022-06-09] MEDS ORDERED: ALPRAZOLAM 0.25 MG TABLET PO ONE (13:30)
[2022-06-09] MEDS: ACETAMINOPHEN 325 MG TAB PO PRN (16:04)
[2022-06-09 17:19] LABS: BODY FLUID RBC 370 /cu. mm.; BODY FLUID WBC 222 /cu. mm.
[2022-06-09 17:24] LABS: APPEARANCE BODY FLUID SLIGHTLY CLOUDY (CLEAR); COLOR,BODY FLUID YELLOW (LT YELLOW); SPECIMENTYPE,BODY FLUID PLEURAL; TOTAL VOLUME,BODY FLUID 1500 mL
[2022-06-09 18:01] LABS: BF LYMPHOCYTE 16 %; BF MESOTHELIAL 10 %; BF MONOCYTE 1 %
[2022-06-09] MEDS: ATORVASTATIN 40 MG TABLET PO SCH (20:38)
[2022-06-09] MEDS: ALPRAZOLAM 0.25 MG TABLET PO SCH (20:38)
[2022-06-10 03:29] VITALS: BP 108/51
[2022-06-10] MEDS: ACETAMINOPHEN 325 MG TAB PO PRN ×2 (03:49→20:23)
[2022-06-10 05:45] LABS: BASOPHILS % (AUTO) 0.7 % (0.0-5.0); HEMATOCRIT 38.6 % (36-48); LYMPHOCYTES % (AUTO) 22.9 % (21.0-51.0); MEAN CORPUSCULAR HEMOGLOBIN 30.5 pg (27.0-33.0); MEAN CORPUSCULAR HGB CONC 33.2 g/dL (32.0-36.0); MEAN CORPUSCULAR VOLUME 92.1 fL (79-99); MONOCYTES % (AUTO) 8.8 % (3.0-13.0); NEUTROPHILS % (AUTO) 65.3 % (40.0-77.0); PLATELET COUNT (AUTO) 193 K/uL (130-400); RED BLOOD CELL COUNT(AUTO) 4.19 MIL/uL (4.00-5.50); WHITE BLOOD COUNT (AUTO) 7.1 K/uL (4.8-10.8)
[2022-06-10 05:54] LABS: ALBUMIN 2.3 g/dL (3.5-5.0); CREATININE 2.5 mg/dL (0.5-1.5); POTASSIUM 3.1 mmol/L (3.5-5.1); TOTAL PROTEIN, SERUM 5.2 g/dL (6.0-8.3)
[2022-06-10] MEDS: LEVOTHYROXINE 25 MCG TABLET PO SCH (06:10)
[2022-06-10] MEDS: FUROSEMIDE 20MG VIAL IV SCH ×2 (06:10→17:35)
[2022-06-10] MEDS: INSULIN HUMULIN R 100 UNIT/ML 3ML SQ SCH ×5 (06:17→21:38)
[2022-06-10 08:00] VITALS: BP 108/70
[2022-06-10] MEDS: CLOPIDOGREL 75MG TAB PO SCH (08:32)
[2022-06-10] MEDS: ALPRAZOLAM 0.25 MG TABLET PO SCH ×2 (08:32→20:21)
[2022-06-10] MEDS: CARVEDILOL 6.25 MG TABLET PO SCH ×2 (08:33→20:22)
[2022-06-10 11:26] VITALS: BP 102/61
[2022-06-10 16:00] VITALS: BP 104/73
[2022-06-10 20:00] VITALS: BP 122/82
[2022-06-10] MEDS: ATORVASTATIN 40 MG TABLET PO SCH (20:22)
[2022-06-10 23:41] VITALS: BP 106/47
[2022-06-11 04:00] VITALS: BP 122/64
[2022-06-11 05:39] LABS: BASOPHILS % (AUTO) 0.6 % (0.0-5.0); EOSINOPHILS % (AUTO) 1.9 % (0.0-8.0); HEMATOCRIT 38.2 % (36-48); LYMPHOCYTES % (AUTO) 14.4 % (21.0-51.0); MEAN CORPUSCULAR HEMOGLOBIN 30.5 pg (27.0-33.0); MEAN CORPUSCULAR HGB CONC 33.2 g/dL (32.0-36.0); MEAN CORPUSCULAR VOLUME 91.8 fL (79-99); MONOCYTES % (AUTO) 8.5 % (3.0-13.0); NEUTROPHILS % (AUTO) 74.3 % (40.0-77.0); PLATELET COUNT (AUTO) 171 K/uL (130-400); RED BLOOD CELL COUNT(AUTO) 4.16 MIL/uL (4.00-5.50); RED CELL DISTRIBUTION WIDTH 14.8 % (11.0-15.5); WHITE BLOOD COUNT (AUTO) 6.3 K/uL (4.8-10.8)
[2022-06-11] MEDS: LEVOTHYROXINE 25 MCG TABLET PO SCH (05:40)
[2022-06-11] MEDS: FUROSEMIDE 20MG VIAL IV SCH ×2 (05:40→23:04)
[2022-06-11] MEDS: INSULIN HUMULIN R 100 UNIT/ML 3ML SQ SCH ×4 (05:47→23:13)
[2022-06-11 05:54] LABS: ALBUMIN 2.1 g/dL (3.5-5.0); CREATININE 2.4 mg/dL (0.5-1.5); POTASSIUM 3.4 mmol/L (3.5-5.1); TOTAL PROTEIN, SERUM 4.8 g/dL (6.0-8.3)
[2022-06-11 07:30] VITALS: BP 106/51
[2022-06-11] MEDS: ALPRAZOLAM 0.25 MG TABLET PO SCH ×2 (08:54→23:03)
[2022-06-11] MEDS: CLOPIDOGREL 75MG TAB PO SCH (08:54)
[2022-06-11] MEDS: CARVEDILOL 6.25 MG TABLET PO SCH ×2 (08:55→23:03)
[2022-06-11] MEDS ORDERED: FUROSEMIDE 20MG VIAL IV ONE (10:00)
[2022-06-11 11:30] VITALS: BP 111/70
[2022-06-11 15:30] VITALS: BP 94/63
[2022-06-11] MEDS: HEPARIN 5,000 UNIT VIAL SQ SCH (16:07)
[2022-06-11 19:55] LABS: ABG BASE EXCESS -1.2 mmol/L (-2.0-3.0); ABG HCO3 24.1 mmol/L (21.0-28.0); ABG OXYGEN SATURATION 98.5 % (95.0-99.0); ABG PCO2 43 mmHg (32-45)
[2022-06-11 20:00] VITALS: BP 102/66
[2022-06-11] MEDS: ATORVASTATIN 40 MG TABLET PO SCH (23:02)
[2022-06-11] MEDS: FAMOTIDINE 20MG TAB PO SCH (23:02)
[2022-06-12] VITALS (8 sets, daily range): BP systolic 84–116; BP diastolic 51–69
[2022-06-12] MEDS: HEPARIN 5,000 UNIT VIAL SQ SCH ×4 (03:30→17:53)
[2022-06-12 04:45] LABS: BASOPHILS % (AUTO) 0.6 % (0.0-5.0); HEMATOCRIT 40.6 % (36-48); LYMPHOCYTES % (AUTO) 17.6 % (21.0-51.0); MEAN CORPUSCULAR HEMOGLOBIN 30.7 pg (27.0-33.0); MEAN CORPUSCULAR VOLUME 93.1 fL (79-99); MONOCYTES % (AUTO) 9.1 % (3.0-13.0); NEUTROPHILS % (AUTO) 70.3 % (40.0-77.0); PLATELET COUNT (AUTO) 190 K/uL (130-400); RED BLOOD CELL COUNT(AUTO) 4.36 MIL/uL (4.00-5.50)
[2022-06-12 05:08] LABS: ALBUMIN 2.2 g/dL (3.5-5.0); CREATININE 2.5 mg/dL (0.5-1.5); POTASSIUM 3.5 mmol/L (3.5-5.1); TOTAL PROTEIN, SERUM 5.1 g/dL (6.0-8.3)
[2022-06-12] MEDS: INSULIN HUMULIN R 100 UNIT/ML 3ML SQ SCH ×4 (06:40→20:32)
[2022-06-12] MEDS: LEVOTHYROXINE 25 MCG TABLET PO SCH (06:42)
[2022-06-12] MEDS: CARVEDILOL 6.25 MG TABLET PO SCH (09:00)
[2022-06-12] MEDS ORDERED: DOBUTAMINE 500 MG/D5% WATER 250 ML IV SCH (09:30)
[2022-06-12] MEDS: ALPRAZOLAM 0.25 MG TABLET PO SCH ×2 (10:07→20:35)
[2022-06-12] MEDS: CLOPIDOGREL 75MG TAB PO SCH (10:08)
[2022-06-12] MEDS: FUROSEMIDE 20MG VIAL IV SCH (10:08)
[2022-06-12 11:59] LABS: CREATININE,URINE RANDOM 70 mg/dL (30-135); SODIUM,URINE RANDOM 21 mmol/l (40-220)
[2022-06-12] MEDS: METOPROLOL TARTRATE 25 MG TAB PO SCH ×2 (14:12→20:36)
[2022-06-12] MEDS: MILRINONE-D5W 20 MG/100 ML 100 ML IV SCH (14:22)
[2022-06-12] MEDS: FUROSEMIDE 100MG VIAL 100 MG in 0.9%NACL 100ML 100 ML IV SCH (18:26)
[2022-06-12] MEDS: FAMOTIDINE 20MG TAB PO SCH (20:35)
[2022-06-12] MEDS: ATORVASTATIN 40 MG TABLET PO SCH (20:36)
[2022-06-12] MEDS: ACETAMINOPHEN 325 MG TAB PO PRN (23:38)
[2022-06-12] MEDS: TEMAZEPAM 15 MG CAPSULE PO PRN (23:40)
[2022-06-13] MEDS: MILRINONE-D5W 20 MG/100 ML 100 ML IV SCH ×2 (00:17→12:30)
[2022-06-13] MEDS: HEPARIN 5,000 UNIT VIAL SQ SCH ×2 (01:52→09:13)
[2022-06-13] MEDS: FUROSEMIDE 100MG VIAL 100 MG in 0.9%NACL 100ML 100 ML IV SCH ×2 (02:13→17:27)
[2022-06-13 04:06] VITALS: BP 110/58
[2022-06-13] MEDS: INSULIN HUMULIN R 100 UNIT/ML 3ML SQ SCH ×4 (06:10→21:51)
[2022-06-13] MEDS: LEVOTHYROXINE 25 MCG TABLET PO SCH (06:10)
[2022-06-13 06:18] LABS: BASOPHILS % (AUTO) 0.9 % (0.0-5.0); EOSINOPHILS % (AUTO) 1.2 % (0.0-8.0); HEMATOCRIT 34.4 % (36-48); LYMPHOCYTES % (AUTO) 14.6 % (21.0-51.0); MEAN CORPUSCULAR HEMOGLOBIN 30.9 pg (27.0-33.0); MEAN CORPUSCULAR HGB CONC 33.7 g/dL (32.0-36.0); MEAN CORPUSCULAR VOLUME 91.7 fL (79-99); MONOCYTES % (AUTO) 11.7 % (3.0-13.0); NEUTROPHILS % (AUTO) 71.2 % (40.0-77.0); PLATELET COUNT (AUTO) 192 K/uL (130-400); RED BLOOD CELL COUNT(AUTO) 3.75 MIL/uL (4.00-5.50); RED CELL DISTRIBUTION WIDTH 14.7 % (11.0-15.5); WHITE BLOOD COUNT (AUTO) 6.9 K/uL (4.8-10.8)
[2022-06-13 06:33] LABS: ALBUMIN 2.3 g/dL (3.5-5.0); CREATININE 2.5 mg/dL (0.5-1.5); POTASSIUM 3.4 mmol/L (3.5-5.1)
[2022-06-13 08:00] VITALS: BP 109/68
[2022-06-13] MEDS: ALPRAZOLAM 0.25 MG TABLET PO SCH ×2 (08:52→21:47)
[2022-06-13] MEDS: CLOPIDOGREL 75MG TAB PO SCH (08:52)
[2022-06-13] MEDS: CARVEDILOL 6.25 MG TABLET PO SCH ×2 (09:15→21:47)
[2022-06-13] MEDS ORDERED: DIGOXIN 250 MCG/ML 2ML AMP IV SCH ×2 (09:30→16:00)
[2022-06-13] MEDS ORDERED: AMIODARONE 900MG VIAL 360 MG in DEXTROSE 5%-WATER 200 ML IV SCH (09:30)
[2022-06-13] MEDS ORDERED: AMIODARONE 900MG VIAL 150 MG in DEXTROSE 5%-WATER 100 ML IV SCH (09:30)
[2022-06-13] MEDS: AMIODARONE 900MG VIAL 540 MG in DEXTROSE 5%-WATER 300 ML IV SCH ×2 (10:46→17:34)
[2022-06-13] MEDS ORDERED: POTASSIUM CHLORIDE 10MEQ/100ML 100 ML IV PRN (12:00)
[2022-06-13] MEDS ORDERED: POTASSIUM CHLORIDE 10% ELIXIR 20 MEQ/15 ML UDCUP PO PRN (12:00)
[2022-06-13] MEDS ORDERED: LIDOCAINE HCL-MPF 1% 2ML VIAL IV PRN (12:00)
[2022-06-13 12:07] VITALS: BP 117/66
[2022-06-13] MEDS: KCL 20 MEQ ERTAB PO PRN ×2 (12:22→15:49)
[2022-06-13 13:49] LABS: APPEARANCE,URINE CLEAR (CLEAR); BILIRUBIN,URINE NEGATIVE (NEGATIVE); COLOR,URINE YELLOW (YELLOW); GLUCOSE, URINE (UA) NEGATIVE (NEGATIVE); KETONES,URINE NEGATIVE (NEGATIVE); LEUKOCYTE ESTERASE ,URINE NEGATIVE Leu/uL (NEGATIVE); NITRATE,URINE NEGATIVE (NEGATIVE); OCCULT BLOOD,URINE MODERATE (NEGATIVE); PH,URINE 5.5 (5.0-8.0); PROTEIN,URINE NEGATIVE (NEGATIVE); UROBILINOGEN,URINE 0.2 mg/dL (0.2-1.0)
[2022-06-13 14:09] LABS: BACTERIA,URINE None Seen /HPF (None Seen); SQUAMOUS EPITHELIAL CELL,UR 0-2 /HPF (0-2); WBC,URINE None Seen /HPF (0-1)
[2022-06-13 16:15] VITALS: BP 98/66
[2022-06-13 19:59] VITALS: BP 114/59
[2022-06-13] MEDS: APIXABAN 5 MG TABLET PO SCH ×2 (21:00→21:48)
[2022-06-13] MEDS: FAMOTIDINE 20MG TAB PO SCH (21:47)
[2022-06-13] MEDS: ATORVASTATIN 40 MG TABLET PO SCH (21:47)
[2022-06-13] MEDS: TEMAZEPAM 15 MG CAPSULE PO PRN (22:40)
[2022-06-13] MEDS: ACETAMINOPHEN 325 MG TAB PO PRN (22:40)
[2022-06-13 23:27] VITALS: BP 120/53
[2022-06-14 03:48] VITALS: BP 89/50
[2022-06-14 03:52] VITALS: BP 104/44
[2022-06-14 04:10] LABS: BASOPHILS % (AUTO) 0.7 % (0.0-5.0); EOSINOPHILS % (AUTO) 2.5 % (0.0-8.0); HEMATOCRIT 33.4 % (36-48); LYMPHOCYTES % (AUTO) 14.5 % (21.0-51.0); MEAN CORPUSCULAR HEMOGLOBIN 30.9 pg (27.0-33.0); MEAN CORPUSCULAR HGB CONC 33.5 g/dL (32.0-36.0); MEAN CORPUSCULAR VOLUME 92.3 fL (79-99); MONOCYTES % (AUTO) 11.6 % (3.0-13.0); NEUTROPHILS % (AUTO) 70.4 % (40.0-77.0); PLATELET COUNT (AUTO) 159 K/uL (130-400); RED BLOOD CELL COUNT(AUTO) 3.62 MIL/uL (4.00-5.50); RED CELL DISTRIBUTION WIDTH 14.6 % (11.0-15.5)
[2022-06-14 04:26] LABS: INR 1.18 (0.85-1.15); PROTHROMBIN TIME 12.7 SEC (9.6-11.6)
[2022-06-14 04:28] LABS: CREATININE 2.6 mg/dL (0.5-1.5); PHOSPHORUS 4.6 mg/dL (2.5-4.9); POTASSIUM 3.6 mmol/L (3.5-5.1)
[2022-06-14] MEDS: LEVOTHYROXINE 25 MCG TABLET PO SCH (05:41)
[2022-06-14] MEDS: KCL 20 MEQ ERTAB PO PRN ×2 (05:42→07:57)
[2022-06-14] MEDS: INSULIN HUMULIN R 100 UNIT/ML 3ML SQ SCH ×4 (07:30→20:19)
[2022-06-14] MEDS: MILRINONE-D5W 20 MG/100 ML 100 ML IV SCH (07:55)
[2022-06-14] MEDS: ALPRAZOLAM 0.25 MG TABLET PO SCH (07:55)
[2022-06-14] MEDS: CARVEDILOL 6.25 MG TABLET PO SCH ×2 (07:56→20:26)
[2022-06-14 07:57] VITALS: BP 109/56
[2022-06-14] MEDS: APIXABAN 5 MG TABLET PO SCH ×2 (09:00→20:02)
[2022-06-14] MEDS: AMIODARONE 900MG VIAL 540 MG in DEXTROSE 5%-WATER 300 ML IV SCH (10:45)
[2022-06-14] MEDS: FUROSEMIDE 100MG VIAL 100 MG in 0.9%NACL 100ML 100 ML IV SCH (10:46)
[2022-06-14 11:18] VITALS: BP 104/59
[2022-06-14] MEDS: BUMETANIDE 2.5MG/10ML VIAL 40 ML IV SCH (14:23)
[2022-06-14 16:00] VITALS: BP 100/53
[2022-06-14 19:52] VITALS: BP 116/58
[2022-06-14] MEDS: FAMOTIDINE 20MG TAB PO SCH (20:26)
[2022-06-14] MEDS: ATORVASTATIN 40 MG TABLET PO SCH (20:26)
[2022-06-14] MEDS ORDERED: METOLAZONE 2.5 MG TABLET PO SCH (21:00)
[2022-06-15 00:23] VITALS: BP 115/62
[2022-06-15] MEDS: LEVOTHYROXINE 25 MCG TABLET PO SCH (02:08)
[2022-06-15] MEDS: MILRINONE-D5W 20 MG/100 ML 100 ML IV SCH (03:01)
[2022-06-15 03:50] LABS: HEMATOCRIT 35.2 % (36-48); MEAN CORPUSCULAR HEMOGLOBIN 30.5 pg (27.0-33.0); MEAN CORPUSCULAR HGB CONC 33.2 g/dL (32.0-36.0); MEAN CORPUSCULAR VOLUME 91.7 fL (79-99); PLATELET COUNT (AUTO) 162 K/uL (130-400); RED BLOOD CELL COUNT(AUTO) 3.84 MIL/uL (4.00-5.50); RED CELL DISTRIBUTION WIDTH 14.5 % (11.0-15.5); WHITE BLOOD COUNT (AUTO) 6.1 K/uL (4.8-10.8)
[2022-06-15] MEDS: BUMETANIDE 2.5MG/10ML VIAL 40 ML IV SCH (04:12)
[2022-06-15 04:15] LABS: ALBUMIN 2.4 g/dL (3.5-5.0); CREATININE 2.6 mg/dL (0.5-1.5); MAGNESIUM 1.9 mg/dL (1.80-2.40); PHOSPHORUS 4.4 mg/dL (2.5-4.9); POTASSIUM 3.6 mmol/L (3.5-5.1); TOTAL PROTEIN, SERUM 5.4 g/dL (6.0-8.3)
[2022-06-15 04:20] VITALS: BP 117/65
[2022-06-15 04:41] LABS: BASOPHILS % (MANUAL) 1 % (0-2); EOSINOPHILS % (MANUAL) 1 % (1-6); LYMPHOCYTES % (MANUAL) 11 % (22-44); MONOCYTES % (MANUAL) 6 % (2-9); SEGMENTED NEUTROPHILS % 81 % (40-70)
[2022-06-15 04:42] LABS: MAN.DIFF COMMENT-IMPRESSION MANUAL DIFFERENTIAL
[2022-06-15 06:30] VITALS: BP 117/59
[2022-06-15] MEDS: INSULIN HUMULIN R 100 UNIT/ML 3ML SQ SCH (07:34)
[2022-06-15] MEDS ORDERED: MIDAZOLAM HCL 1 MG/ML 2ML VIAL IVP ONE (09:00)
[2022-06-15] MEDS ORDERED: FENTANYL CITRATE PF 50 MCG/1 ML 2ML VIAL IVP ONE (09:00)
== END 2022-06-15 08:10 | disposition left against medical advice (07) | DRG 291 ==
LOC: EDH 20:13 → EDHIP 23:21 → OBSVTOIN 23:21 → 4BH 06-09 08:35 → 2AH 06-12 12:51
PROVIDERS: ADMIT Internal Medicine Critical Care Medicine; ATTEND Internal Medicine Critical Care Medicine
PROC: 0W9930Z Drainage of Right Pleural Cavity with Drainage Device, Percutaneous Approach (ICD-10-PCS; principal; 2022-06-09)
DX: I13.0 Hypertensive heart and chronic kidney disease with heart failure and stage 1 through stage 4 chronic kidney disease, or unspecified chronic kidney disease (principal); I50.43 Acute on chronic combined systolic (congestive) and diastolic (congestive) heart failure; J96.01 Acute respiratory failure with hypoxia; J98.11 Atelectasis; I48.19 Other persistent atrial fibrillation; K86.2 Cyst of pancreas; N18.4 Chronic kidney disease, stage 4 (severe); E87.1 Hypo-osmolality and hyponatremia; N17.9 Acute kidney failure, unspecified; R18.8 Other ascites; Z20.822 Contact with and (suspected) exposure to COVID-19; E11.22 Type 2 diabetes mellitus with diabetic chronic kidney disease; I27.20 Pulmonary hypertension, unspecified; K86.9 Disease of pancreas, unspecified; K74.60 Unspecified cirrhosis of liver; I25.5 Ischemic cardiomyopathy; E11.65 Type 2 diabetes mellitus with hyperglycemia; D64.9 Anemia, unspecified; E03.9 Hypothyroidism, unspecified; E11.40 Type 2 diabetes mellitus with diabetic neuropathy, unspecified; E11.51 Type 2 diabetes mellitus with diabetic peripheral angiopathy without gangrene; E78.00 Pure hypercholesterolemia, unspecified; E66.01 Morbid (severe) obesity due to excess calories; E86.9 Volume depletion, unspecified; I08.1 Rheumatic disorders of both mitral and tricuspid valves; E87.6 Hypokalemia; I25.10 Atherosclerotic heart disease of native coronary artery without angina pectoris; K76.0 Fatty (change of) liver, not elsewhere classified; M71.22 Synovial cyst of popliteal space [Baker], left knee; Z53.29 Procedure and treatment not carried out because of patient's decision for other reasons; Z66 Do not resuscitate; Z90.710 Acquired absence of both cervix and uterus; Z79.01 Long term (current) use of anticoagulants; I25.2 Old myocardial infarction; Z95.1 Presence of aortocoronary bypass graft; Z95.5 Presence of coronary angioplasty implant and graft; Z68.35 Body mass index [BMI] 35.0-35.9, adult
CPT/HCPCS: 32555; 36415; 36600; 71045; 71250; 74181; 76700; 80048; 80053; 81001; 81003; 82150; 82378; 82570; 82803; 82945; 82948; 83615; 83690; 83735; 83880; 83986; 84100; 84157; 84300; 84439; 84443; 84481; 84484; 85025; 85378; 85610; 86316; 87071; 87116; 87205; 87206; 87635; 89051; 93005; 93970; 97039; C1729; G0378; J0282; J1160; J1250; J1644; J1815; J1940; J2250; J2260; J3490; J7060

== ENCOUNTER 2022-07-19 12:26 | Inpatient (IN) | payer OTHER ==
[~2022-07-19] VITALS: Ht 152.4 cm; Wt 92.6 kg
[2022-07-19 13:16] LABS: BASOPHILS % (AUTO) 0.4 % (0.0-5.0); EOSINOPHILS % (AUTO) 0.5 % (0.0-8.0); HEMATOCRIT 43.4 % (36-48); LYMPHOCYTES % (AUTO) 15.1 % (21.0-51.0); MEAN CORPUSCULAR HEMOGLOBIN 30.1 pg (27.0-33.0); MEAN CORPUSCULAR HGB CONC 32.7 g/dL (32.0-36.0); MEAN CORPUSCULAR VOLUME 91.9 fL (79-99); MONOCYTES % (AUTO) 8.4 % (3.0-13.0); NEUTROPHILS % (AUTO) 75.3 % (40.0-77.0); PLATELET COUNT (AUTO) 182 K/uL (130-400); RED BLOOD CELL COUNT(AUTO) 4.72 MIL/uL (4.00-5.50); RED CELL DISTRIBUTION WIDTH 15.6 % (11.0-15.5); WHITE BLOOD COUNT (AUTO) 7.6 K/uL (4.8-10.8)
[2022-07-19 13:26] LABS: CREATININE 2.4 mg/dL (0.5-1.5); POTASSIUM 3.9 mmol/L (3.5-5.1)
[2022-07-19 13:30] LABS: ALBUMIN 2.3 g/dL (3.5-5.0); TOTAL PROTEIN, SERUM 5.3 g/dL (6.0-8.3)
[2022-07-19] MEDS ORDERED: ZOSYN 3.375GM +NS 50ML IVPB ONE (13:30)
[2022-07-19 13:56] LABS: APPEARANCE,URINE CLEAR (CLEAR); BILIRUBIN,URINE NEGATIVE (NEGATIVE); COLOR,URINE LIGHT-YELLOW (YELLOW); GLUCOSE, URINE (UA) NEGATIVE (NEGATIVE); KETONES,URINE NEGATIVE (NEGATIVE); LEUKOCYTE ESTERASE ,URINE 500 Leu/uL (NEGATIVE); NITRATE,URINE 1+ (NEGATIVE); OCCULT BLOOD,URINE NEGATIVE (NEGATIVE); PROTEIN,URINE NEGATIVE (NEGATIVE); UROBILINOGEN,URINE 0.2 mg/dL (0.2-1.0)
[2022-07-19 14:35] LABS: BACTERIA,URINE MOD /HPF (None Seen); HYALINE CASTS, URINE 26-50 /LPF (0-1 /LPF); MUCUS,URINE RARE LPF (None Seen); SQUAMOUS EPITHELIAL CELL,UR RARE /HPF (0-2); WBC,URINE 26-50 /HPF (0-1)
[2022-07-19] MEDS ORDERED: DILTIAZEM 125 MG/25 ML INJ 125 MG in 0.9%NACL 100ML 100 ML IV PRN (16:00)
[2022-07-19] MEDS ORDERED: ACETAMINOPHEN 325 MG TAB PO PRN (16:00)
[2022-07-19] MEDS ORDERED: ONDANSETRON ODT 4MG TAB SL PRN (16:00)
[2022-07-19] MEDS: FUROSEMIDE 40MG VIAL IV SCH (16:27)
[2022-07-19] MEDS: INSULIN HUMULIN R 100 UNIT/ML 3ML SQ SCH ×2 (16:28→21:07)
[2022-07-19] MEDS ORDERED: AMIODARONE 900MG VIAL 150 MG in DEXTROSE 5%-WATER 100 ML IV SCH (17:45)
[2022-07-19] MEDS ORDERED: AMIODARONE 900MG VIAL 360 MG in DEXTROSE 5%-WATER 200 ML IV SCH (17:55)
[2022-07-19] MEDS ORDERED: ATROPINE 1MG SYG IVP ONE (20:25)
[2022-07-19] MEDS ORDERED: SODIUM BICARB 8.4% 50ML SYRINGE IVP ONE (20:25)
[2022-07-19] MEDS ORDERED: EPINEPHRINE 1MG/10ML(1:10,000) 0.1 MG/ML SYG IVP ONE (20:25)
[2022-07-19] MEDS ORDERED: DOCU100C33 PO (20:33)
[2022-07-19] MEDS ORDERED: FOLI1TAB85 PO (20:33)
[2022-07-19] MEDS ORDERED: TRAZ-253 PO (20:33)
[2022-07-19] MEDS ORDERED: 0.9%NACL 50ML IV SCH (21:00)
[2022-07-19] MEDS: GABAPENTIN 300 MG CAPSULE PO SCH (21:06)
[2022-07-19] MEDS: APIXABAN 5 MG TABLET PO SCH (21:06)
[2022-07-19] MEDS: AMIODARONE 200 MG TABLET PO SCH (21:06)
[2022-07-20] VITALS (7 sets, daily range): BP systolic 83–113; BP diastolic 53–80
[2022-07-20] MEDS ORDERED: DILTIAZEM 60MG TAB PO SCH
[2022-07-20] MEDS ORDERED: AMIODARONE 900MG VIAL 540 MG in DEXTROSE 5%-WATER 300 ML IV SCH (00:10)
[2022-07-20] MEDS ORDERED: ZOSYN 3.375GM +NS 50ML IVPB SCH (01:00)
[2022-07-20 03:43] LABS: BASOPHILS % (AUTO) 0.9 % (0.0-5.0); EOSINOPHILS % (AUTO) 0.7 % (0.0-8.0); HEMATOCRIT 43.5 % (36-48); LYMPHOCYTES % (AUTO) 19.8 % (21.0-51.0); MEAN CORPUSCULAR HEMOGLOBIN 30.2 pg (27.0-33.0); MEAN CORPUSCULAR VOLUME 94.6 fL (79-99); MONOCYTES % (AUTO) 10.1 % (3.0-13.0); NEUTROPHILS % (AUTO) 68.1 % (40.0-77.0); PLATELET COUNT (AUTO) 194 K/uL (130-400); RED CELL DISTRIBUTION WIDTH 15.6 % (11.0-15.5); WHITE BLOOD COUNT (AUTO) 8.2 K/uL (4.8-10.8)
[2022-07-20 03:52] LABS: CREATININE 2.4 mg/dL (0.5-1.5); POTASSIUM 3.7 mmol/L (3.5-5.1)
[2022-07-20] MEDS: FUROSEMIDE 40MG VIAL IV SCH (04:04)
[2022-07-20] MEDS: HYDROXYZINE 25 MG TABLET PO PRN (05:47)
[2022-07-20] MEDS: INSULIN HUMULIN R 100 UNIT/ML 3ML SQ SCH ×4 (05:49→21:31)
[2022-07-20 06:37] LABS: INR 1.13 (0.85-1.15); PROTHROMBIN TIME 12.2 SEC (9.6-11.6)
[2022-07-20 06:38] LABS: PARTIAL THROMBOPLASTIN TIME 27.1 SEC (26.3-35.5)
[2022-07-20 07:42] LABS: ABG BASE EXCESS -2.6 mmol/L (-2.0-3.0); ABG HCO3 25.4 mmol/L (21.0-28.0); ABG OXYGEN SATURATION 95.1 % (95.0-99.0); ABG PCO2 58 mmHg (32-45)
[2022-07-20] MEDS ORDERED: AMIODARONE 360MG/200ML D5W(1MG/MIN) IV SCH ×2 (08:00)
[2022-07-20] MEDS ORDERED: PHARMACY COMMUNICATION MISC SCH (08:00)
[2022-07-20] MEDS: IPRATROPIUM 0.5 MG/2.5 ML INH IH SCH ×4 (08:00→14:00)
[2022-07-20] MEDS: ATORVASTATIN 20 MG TABLET PO SCH (08:16)
[2022-07-20] MEDS: AMIODARONE 200 MG TABLET PO SCH ×2 (08:16→21:28)
[2022-07-20] MEDS: GABAPENTIN 300 MG CAPSULE PO SCH ×3 (08:16→21:28)
[2022-07-20] MEDS: CARVEDILOL 6.25 MG TABLET PO SCH (08:16)
[2022-07-20] MEDS ORDERED: CEFTRIAXONE 2GM VIAL IVPB SCH (09:00)
[2022-07-20] MEDS: CLOPIDOGREL 75MG TAB PO SCH (09:00)
[2022-07-20] MEDS: APIXABAN 5 MG TABLET PO SCH ×2 (09:00→19:21)
[2022-07-20] MEDS ORDERED: AMIODARONE 540 MG/D5W 300ML (0.5MG/MIN) IV SCH ×2 (14:00)
[2022-07-20] MEDS: FUROSEMIDE 100MG VIAL IVP SCH (21:28)
[2022-07-21] VITALS (58 sets, daily range): BP systolic 65–165; BP diastolic 32–81
[2022-07-21 04:03] LABS: HEMATOCRIT 47.3 % (36-48); MEAN CORPUSCULAR HEMOGLOBIN 30.5 pg (27.0-33.0); MEAN CORPUSCULAR HGB CONC 31.9 g/dL (32.0-36.0); MEAN CORPUSCULAR VOLUME 95.6 fL (79-99); NUCLEATED RED BLOOD CELLS 0.2 % (0.0-0.19); RED BLOOD CELL COUNT(AUTO) 4.95 MIL/uL (4.00-5.50); RED CELL DISTRIBUTION WIDTH 15.6 % (11.0-15.5); WHITE BLOOD COUNT (AUTO) 10.9 K/uL (4.8-10.8)
[2022-07-21 04:17] LABS: INR 1.17 (0.85-1.15); PROTHROMBIN TIME 12.6 SEC (9.6-11.6)
[2022-07-21 04:18] LABS: PARTIAL THROMBOPLASTIN TIME 30.5 SEC (26.3-35.5)
[2022-07-21 04:35] LABS: ALBUMIN 2.2 g/dL (3.5-5.0); CREATININE 3.2 mg/dL (0.5-1.5); POTASSIUM 4.5 mmol/L (3.5-5.1); TOTAL PROTEIN, SERUM 5.4 g/dL (6.0-8.3)
[2022-07-21] MEDS ORDERED: NOREPINEPHRIN 4MG/NS 250ML 250 ML IV ONE ×2 (04:59→10:28)
[2022-07-21] MEDS ORDERED: EPINEPHRINE 1 MG/ML 30ML VIAL IJ ONE (04:59)
[2022-07-21] MEDS: IPRATROPIUM 0.5 MG/2.5 ML INH IH SCH (06:00)
[2022-07-21] MEDS: INSULIN HUMULIN R 100 UNIT/ML 3ML SQ SCH ×4 (06:13→21:00)
[2022-07-21] MEDS: CARVEDILOL 6.25 MG TABLET PO SCH (09:00)
[2022-07-21] MEDS: AMIODARONE 200 MG TABLET PO SCH ×2 (09:00→20:39)
[2022-07-21] MEDS: FUROSEMIDE 100MG VIAL IVP SCH ×2 (11:00→20:39)
[2022-07-21] MEDS: GABAPENTIN 300 MG CAPSULE PO SCH ×2 (11:01→14:00)
[2022-07-21] MEDS: APIXABAN 5 MG TABLET PO SCH ×2 (11:01→20:39)
[2022-07-21] MEDS: CLOPIDOGREL 75MG TAB PO SCH (11:02)
[2022-07-21] MEDS: ATORVASTATIN 20 MG TABLET PO SCH (11:02)
[2022-07-21] MEDS ORDERED: VANCOMYCIN PROTOCOL PER PHARMACY IV SCH (11:30)
[2022-07-21 12:44] LABS: ABG BASE EXCESS -4.7 mmol/L (-2.0-3.0); ABG HCO3 18.1 mmol/L (21.0-28.0); ABG PCO2 28 mmHg (32-45)
[2022-07-21] MEDS ORDERED: CEFEPIME HCL 2 GM VIAL IVPB SCH (12:55)
[2022-07-21] MEDS ORDERED: VANCOMYCIN 1G/250ML KIT 250 ML IV SCH (13:00)
[2022-07-21] MEDS: CEFEPIME HCL 1 GM VIAL IVPB SCH (13:21)
[2022-07-21] MEDS ORDERED: VANCOMYCIN 750MG VIAL IVPB SCH (15:30)
[2022-07-21] MEDS: NOREPINEPHRIN 4MG/NS 250ML 250 ML IV SCH ×2 (16:29→23:15)
[2022-07-22] VITALS (80 sets, daily range): BP systolic 95–139; BP diastolic 35–65
[2022-07-22] MEDS: IPRATROPIUM 0.5 MG/2.5 ML INH IH SCH ×6 (02:13→23:21)
[2022-07-22 04:41] LABS: BASOPHILS % (AUTO) 0.2 % (0.0-5.0); HEMATOCRIT 43.7 % (36-48); MEAN CORPUSCULAR HEMOGLOBIN 30.3 pg (27.0-33.0); NEUTROPHILS % (AUTO) 84.3 % (40.0-77.0); NUCLEATED RED BLOOD CELLS 0.1 % (0.0-0.19); PLATELET COUNT (AUTO) 185 K/uL (130-400); RED BLOOD CELL COUNT(AUTO) 4.75 MIL/uL (4.00-5.50); RED CELL DISTRIBUTION WIDTH 15.4 % (11.0-15.5); WHITE BLOOD COUNT (AUTO) 16.6 K/uL (4.8-10.8)
[2022-07-22 04:53] LABS: CREATININE 3.7 mg/dL (0.5-1.5); POTASSIUM 4.2 mmol/L (3.5-5.1)
[2022-07-22] MEDS: INSULIN HUMULIN R 100 UNIT/ML 3ML SQ SCH ×4 (07:30→20:04)
[2022-07-22] MEDS: FUROSEMIDE 100MG VIAL IVP SCH ×2 (08:09→20:02)
[2022-07-22] MEDS: AMIODARONE 200 MG TABLET PO SCH ×2 (08:10→20:01)
[2022-07-22] MEDS: CLOPIDOGREL 75MG TAB PO SCH (08:10)
[2022-07-22] MEDS: APIXABAN 5 MG TABLET PO SCH ×2 (08:10→20:02)
[2022-07-22] MEDS: ATORVASTATIN 20 MG TABLET PO SCH (08:10)
[2022-07-22] MEDS: CARVEDILOL 6.25 MG TABLET PO SCH (08:11)
[2022-07-22] MEDS ORDERED: METOLAZONE 2.5 MG TABLET PO SCH (10:30)
[2022-07-22] MEDS: NOREPINEPHRIN 4MG/NS 250ML 250 ML IV SCH ×2 (10:32→18:38)
[2022-07-22 11:44] LABS: ABG HCO3 16.7 mmol/L (21.0-28.0); ABG OXYGEN SATURATION 95.7 % (95.0-99.0); ABG PCO2 32 mmHg (32-45)
[2022-07-22] MEDS: CEFEPIME HCL 1 GM VIAL IVPB SCH (13:16)
[2022-07-22] MEDS ORDERED: MORPHINE 2 MG SYG IVP PRN (14:30)
[2022-07-22] MEDS ORDERED: FUROSEMIDE 40MG VIAL IV SCH (14:30)
[2022-07-22] MEDS ORDERED: LORAZEPAM 2 MG/ML 1 ML VIAL IVP PRN (14:30)
[2022-07-22] MEDS ORDERED: 0.9% NACL 250ML 250 ML IV SCH (15:00)
[2022-07-22] MEDS ORDERED: VANCOMYCIN 750MG VIAL IVPB SCH (15:30)
[2022-07-23] VITALS (70 sets, daily range): BP systolic 99–140; BP diastolic 43–89
[2022-07-23] MEDS: NOREPINEPHRIN 4MG/NS 250ML 250 ML IV SCH (02:51)
[2022-07-23] MEDS: IPRATROPIUM 0.5 MG/2.5 ML INH IH SCH ×3 (02:56→10:02)
[2022-07-23 04:01] LABS: HEMATOCRIT 41.4 % (36-48); MEAN CORPUSCULAR HEMOGLOBIN 30.2 pg (27.0-33.0); MEAN CORPUSCULAR HGB CONC 32.4 g/dL (32.0-36.0); MEAN CORPUSCULAR VOLUME 93.5 fL (79-99); NUCLEATED RED BLOOD CELLS 0.1 % (0.0-0.19); RED BLOOD CELL COUNT(AUTO) 4.43 MIL/uL (4.00-5.50); WHITE BLOOD COUNT (AUTO) 14.8 K/uL (4.8-10.8)
[2022-07-23 04:15] LABS: CREATININE 4.3 mg/dL (0.5-1.5); POTASSIUM 5.2 mmol/L (3.5-5.1)
[2022-07-23] MEDS: INSULIN HUMULIN R 100 UNIT/ML 3ML SQ SCH ×3 (07:15→16:30)
[2022-07-23] MEDS: ATORVASTATIN 20 MG TABLET PO SCH (08:32)
[2022-07-23] MEDS: AMIODARONE 200 MG TABLET PO SCH (08:32)
[2022-07-23] MEDS: FUROSEMIDE 100MG VIAL IVP SCH (08:32)
[2022-07-23] MEDS: APIXABAN 5 MG TABLET PO SCH (08:33)
[2022-07-23] MEDS: CARVEDILOL 6.25 MG TABLET PO SCH (08:33)
[2022-07-23] MEDS: HYDROXYZINE 25 MG TABLET PO PRN (08:33)
[2022-07-23] MEDS: CLOPIDOGREL 75MG TAB PO SCH (08:33)
[2022-07-23] MEDS: MIDODRINE HCL 5 MG TABLET PO SCH ×2 (09:11→13:12)
[2022-07-23] MEDS ORDERED: DiphenhydrAMINE HCL 50 MG/ML VIAL IM PRN (09:30)
[2022-07-23] MEDS ORDERED: MEROPENEM 500 MG VIAL IVPB SCH (12:00)
[2022-07-23] MEDS: SODIUM BICARBONATE 650 MG TAB PO SCH ×2 (14:48→17:34)
[2022-07-23] MEDS ORDERED: IPRATROPIUM 0.5 MG/2.5 ML INH IH SCH (18:00)
== END 2022-07-23 20:26 | disposition hospice, home (50) | DRG 871 ==
LOC: EDH 12:26 → UNDOADMOB 15:52 → EDHIP 15:52 → OBSVTOIN 15:52 → INTOOBSV 15:52 → 2AH 07-20 01:52 → EDHIP 07-20 01:52 → 2BH 07-21 06:20 → 2AH 07-21 06:20
PROVIDERS: ADMIT Internal Medicine Infectious Disease; ATTEND Internal Medicine Infectious Disease
PROC: 5A12012 Performance of Cardiac Output, Single, Manual (ICD-10-PCS; principal; 2022-07-21)
PROC: 5A1945Z Respiratory Ventilation, 24-96 Consecutive Hours (ICD-10-PCS; 2022-07-21)
PROC: 0BH17EZ Insertion of Endotracheal Airway into Trachea, Via Natural or Artificial Opening (ICD-10-PCS; 2022-07-21)
PROC: 5A0935A Assistance with Respiratory Ventilation, Less than 24 Consecutive Hours, High Flow/Velocity Cannula (ICD-10-PCS; 2022-07-21)
PROC: 5A09357 Assistance with Respiratory Ventilation, Less than 24 Consecutive Hours, Continuous Positive Airway Pressure (ICD-10-PCS; 2022-07-22)
PROC: 5A0935A Assistance with Respiratory Ventilation, Less than 24 Consecutive Hours, High Flow/Velocity Cannula (ICD-10-PCS; 2022-07-22)
DX: A41.9 Sepsis, unspecified organism (principal); I46.9 Cardiac arrest, cause unspecified; I50.43 Acute on chronic combined systolic (congestive) and diastolic (congestive) heart failure; R65.21 Severe sepsis with septic shock; J96.01 Acute respiratory failure with hypoxia; J96.02 Acute respiratory failure with hypercapnia; I13.0 Hypertensive heart and chronic kidney disease with heart failure and stage 1 through stage 4 chronic kidney disease, or unspecified chronic kidney disease; N18.4 Chronic kidney disease, stage 4 (severe); N17.9 Acute kidney failure, unspecified; R18.8 Other ascites; N30.00 Acute cystitis without hematuria; I48.0 Paroxysmal atrial fibrillation; E11.22 Type 2 diabetes mellitus with diabetic chronic kidney disease; E11.51 Type 2 diabetes mellitus with diabetic peripheral angiopathy without gangrene; I25.10 Atherosclerotic heart disease of native coronary artery without angina pectoris; I25.5 Ischemic cardiomyopathy; B96.20 Unspecified Escherichia coli [E. coli] as the cause of diseases classified elsewhere; D63.8 Anemia in other chronic diseases classified elsewhere; E03.9 Hypothyroidism, unspecified; E66.01 Morbid (severe) obesity due to excess calories; E78.00 Pure hypercholesterolemia, unspecified; K74.60 Unspecified cirrhosis of liver; Z53.20 Procedure and treatment not carried out because of patient's decision for unspecified reasons; Z66 Do not resuscitate; Z95.5 Presence of coronary angioplasty implant and graft; Z51.5 Encounter for palliative care; Z79.01 Long term (current) use of anticoagulants; I25.2 Old myocardial infarction; Z83.3 Family history of diabetes mellitus; Z90.710 Acquired absence of both cervix and uterus; Z91.148 Patient's other noncompliance with medication regimen for other reason; Z68.39 Body mass index [BMI] 39.0-39.9, adult
CPT/HCPCS: 31500; 36415; 36600; 71045; 74176; 80048; 80053; 81001; 82140; 82435; 82550; 82803; 82947; 82948; 83036; 83605; 83690; 83735; 83880; 84132; 84145; 84295; 84484; 85018; 85025; 85027; 85610; 85730; 87040; 87077; 87088; 87186; 92950; 93005; 94002; 94003; 94640; 94660; 94664; G0378; J0171; J0282; J0461; J0692; J1815; J1940; J2185; J2543; J3370; J3490; J7060